=== PATIENT | male | born 1960 | race Caucasian/White ===

== ENCOUNTER 2020-01-03 07:51 | Outpatient (REF) | payer OTHER, SELFPAY ==
[2020-01-03 08:51] LABS: MANUAL DIFF FLAG NO
[2020-01-03 09:07] LABS: Basophils Absolute Auto 0.1 X10*3/uL (0.0-0.2); Basophils Percent Auto 0.9 % (0-2); Eosinophils Absolute Auto 0.3 X10*3/uL (0.0-0.4); Eosinophils Percent Auto 5.3 % (0-4); Hematocrit 41.7 % (42-52); Hemoglobin 13.8 g/dl (14.0-18.0); Imm Gran Abs Auto 0.01 X10*3/uL (0.00-0.03); Imm Gran Pct Auto 0.2 % (0.0-0.4); Lymphocytes Absolute Auto 2.3 X10*3/uL (1.2-4.9); Lymphocytes Percent Auto 42.9 % (20-40); Mean Corpuscular HGB Conc 33.1 g/dl (31.0-36.0); Mean Corpuscular Hemoglobin 30.9 pg (27.0-33.0); Mean Corpuscular Volume 93.5 fL (80-98); Monocytes Absolute Auto 0.4 X10*3/uL (0.1-1.2); Monocytes Percent Auto 7.7 % (2-11); Neutrophils Absolute Auto 2.3 X10*3/uL (2.0-8.3); Platelet Count 304 X10*3/uL (160-400); Red Blood Count 4.46 X10*6/uL (4.60-5.80); Red Cell Distribution Width 13.2 % (11.0-16.0); White Blood Count 5.3 X10*3/uL (4.8-10.8)
[2020-01-03 09:42] LABS: Alanine Aminotransferase 15 U/L (0-40); Albumin Level 4.5 g/dL (3.5-5.0); Alkaline Phosphatase 60 U/L (39-117); Anion Gap 10 (12-20); Aspartate Amino Transferase 34 U/L (5-37); Bilirubin Total 0.6 mg/dL (0.0-1.0); Blood Urea Nitrogen 19 mg/dL (9-16); Calcium 9.3 mg/dL (8.4-10.2); Carbon Dioxide 28 mmol/L (22-29); Chloride 105 mmol/L (96-108); Cholesterol 157 mg/dL; Estimated Glomerular Filt Rate > 60; Glucose Fasting 91 mg/dL (60-99); HDL Cholesterol 54 mg/dL; LDL Cholesterol Calculated 91 mg/dl; Potassium 4.3 mmol/l (3.3-5.1); Sodium 139 mmol/L (135-145); Total Protein 6.7 g/dL (6.5-8.0); Triglycerides 61 mg/dL
[2020-01-03 09:58] LABS: Prostate Specific Antigen 0.75 ng/mL (<0.05-4.0)
== END 2020-01-03 07:52 | disposition home or self-care (01) ==
LOC: HO.LAB 07:51
PROVIDERS: PCP Internal Medicine; Visit Provider Internal Medicine
DX: Z00.00 Encounter for general adult medical examination without abnormal findings (principal); Z12.5 Encounter for screening for malignant neoplasm of prostate
CPT/HCPCS: 36415; 80053; 80061; 84153; 85025

== ENCOUNTER 2020-10-22 14:02 | Outpatient (REF) | payer OTHER, SELFPAY ==
[2020-10-22 14:47] LABS: Influenza A PCR NEGATIVE (Negative); Influenza B PCR NEGATIVE (Negative); Resp Syncy Virus RNA Qual PCR NEGATIVE (Negative); SARS COV2 PCR INHOUSE NEGATIVE (Negative)
== END 2020-10-22 14:03 | disposition home or self-care (01) ==
LOC: HO.LNP 14:02
PROVIDERS: Visit Provider Internal Medicine
DX: Z02.2 Encounter for examination for admission to residential institution (principal); Z20.822 Contact with and (suspected) exposure to COVID-19
CPT/HCPCS: 0241U

== ENCOUNTER 2021-02-25 07:34 | Outpatient (REF) | payer OTHER, SELFPAY ==
[2021-02-25 07:59] LABS: MANUAL DIFF FLAG NO
[2021-02-25 08:43] LABS: Basophils Absolute Auto 0.1 X10*3/uL (0.0-0.2); Basophils Percent Auto 0.9 % (0-2); Eosinophils Absolute Auto 0.2 X10*3/uL (0.0-0.4); Eosinophils Percent Auto 3.6 % (0-4); Hematocrit 42.2 % (42.0-52.0); Hemoglobin 14.1 g/dl (14.0-18.0); Imm Gran Abs Auto 0.02 X10*3/uL (0.00-0.03); Imm Gran Pct Auto 0.3 % (0.0-0.4); Lymphocytes Absolute Auto 2.2 X10*3/uL (1.2-4.9); Lymphocytes Percent Auto 38.2 % (20-40); Mean Corpuscular HGB Conc 33.4 g/dl (31.0-36.0); Mean Corpuscular Hemoglobin 30.9 pg (27.0-33.0); Mean Corpuscular Volume 92.3 fL (80.0-98.0); Mean Platelet Volume 9.5 fL (9.4-12.4); Monocytes Absolute Auto 0.4 X10*3/uL (0.1-1.2); Monocytes Percent Auto 7.3 % (2-11); Neutrophils Absolute Auto 2.9 x10*3/uL (2.0-8.3); Neutrophils Percent Auto 49.7 % (45-73); Platelet Count 275 X10*3/uL (160-400); Red Blood Count 4.57 X10*6/uL (4.60-5.80); Red Cell Distribution Width 12.7 % (11.0-16.0); White Blood Count 5.8 X10*3/uL (4.8-10.8)
[2021-02-25 09:08] LABS: Alanine Aminotransferase 24 U/L (0-40); Albumin Level 4.6 g/dL (3.5-5.0); Alkaline Phosphatase 66 U/L (39-117); Anion Gap 11 (12-20); Aspartate Amino Transferase 40 U/L (5-37); Bilirubin Total 0.7 mg/dL (0.0-1.0); Blood Urea Nitrogen 23 mg/dL (9-16); Calcium 9.7 mg/dL (8.4-10.2); Carbon Dioxide 27 mmol/L (22-29); Chloride 105 mmol/L (96-108); Cholesterol 195 mg/dL; Estimated Glomerular Filt Rate > 60; Glucose Fasting 97 mg/dL (60-99); HDL Cholesterol 64 mg/dL; LDL Cholesterol Calculated 123 mg/dl; Potassium 5.1 mmol/L (3.3-5.1); Sodium 138 mmol/L (135-145); Total Protein 7.1 g/dL (6.5-8.0); Triglycerides 43 mg/dL
[2021-02-25 09:33] LABS: Prostate Specific Antigen 0.86 ng/mL (<0.05-4.0)
== END 2021-02-25 07:35 | disposition home or self-care (01) ==
LOC: HO.LAB 07:34
PROVIDERS: PCP Internal Medicine; Visit Provider Internal Medicine
DX: Z00.00 Encounter for general adult medical examination without abnormal findings (principal); Z13.220 Encounter for screening for lipoid disorders; Z12.5 Encounter for screening for malignant neoplasm of prostate
CPT/HCPCS: 36415; 80053; 80061; 84153; 85025

== ENCOUNTER 2022-02-14 14:17 | Outpatient (REF) | payer OTHER, SELFPAY ==
[2022-02-14 15:03] LABS: Influenza A PCR NEGATIVE (Negative); Influenza B PCR NEGATIVE (Negative); Resp Syncy Virus RNA Qual PCR NEGATIVE (Negative); SARS COV2 PCR INHOUSE NEGATIVE (Negative)
== END 2022-02-14 14:18 | disposition home or self-care (01) ==
LOC: HO.LNP 14:17
PROVIDERS: Visit Provider Internal Medicine
DX: Z20.822 Contact with and (suspected) exposure to COVID-19 (principal); R51.9 Headache, unspecified; R50.9 Fever, unspecified
CPT/HCPCS: 0241U

== ENCOUNTER 2022-11-29 12:34 | Outpatient (REF) | payer OTHER, SELFPAY ==
--- NOTE | ~2022-11-29 | XR_ITS ---
EXAMINATION: XR KNEE, RIGHT CLINICAL INFORMATION: Right knee pain. Osteoarthritis. COMPARISON: None available. TECHNIQUE: AP, tunnel, and lateral views of the right knee. FINDINGS: No significant joint space narrowing or marginal osteophytes. No fracture or dislocation. No lytic or blastic osseous lesion. No significant joint effusion. No abnormal soft tissue calcification. XR/XR knee RT 3V IMPRESSION: Unremarkable examination.
== END 2022-11-29 12:35 | disposition home or self-care (01) ==
LOC: HO.XRAY 12:34
PROVIDERS: PCP Internal Medicine; Visit Provider Internal Medicine
DX: M25.561 Pain in right knee (principal)
CPT/HCPCS: 73562

== ENCOUNTER 2022-12-13 07:03 | Outpatient (REF) | payer OTHER, SELFPAY ==
[2022-12-13 07:16] LABS: MANUAL DIFF FLAG NO
[2022-12-13 07:38] LABS: Basophils Absolute Auto 0.1 X10*3/uL (0.0-0.2); Basophils Percent Auto 0.8 % (0-2); Eosinophils Absolute Auto 0.3 X10*3/uL (0.0-0.4); Eosinophils Percent Auto 4.5 % (0-4); Hemoglobin 14.7 g/dl (14.0-18.0); Imm Gran Abs Auto 0.01 X10*3/uL (0.00-0.03); Imm Gran Pct Auto 0.2 % (0.0-0.4); Lymphocytes Absolute Auto 2.9 X10*3/uL (1.2-4.9); Lymphocytes Percent Auto 44.7 % (20-40); Mean Corpuscular HGB Conc 33.4 g/dl (31.0-36.0); Mean Corpuscular Hemoglobin 30.6 pg (27.0-33.0); Mean Corpuscular Volume 91.7 fL (80.0-98.0); Mean Platelet Volume 9.4 fL (9.4-12.4); Monocytes Absolute Auto 0.5 X10*3/uL (0.1-1.2); Monocytes Percent Auto 8.2 % (2-11); Neutrophils Absolute Auto 2.7 x10*3/uL (2.0-8.3); Neutrophils Percent Auto 41.6 % (45-73); Platelet Count 289 X10*3/uL (160-400); Red Cell Distribution Width 12.9 % (11.0-16.0); White Blood Count 6.5 X10*3/uL (4.8-10.8)
[2022-12-13 08:06] LABS: Alanine Aminotransferase 19 U/L (0-40); Albumin Level 4.4 g/dL (3.5-5.0); Alkaline Phosphatase 64 U/L (39-117); Anion Gap 11 (12-20); Aspartate Amino Transferase 38 U/L (5-37); Bilirubin Total 0.5 mg/dL (0.0-1.0); Blood Urea Nitrogen 18 mg/dL (9-16); Calcium 9.4 mg/dL (8.4-10.2); Carbon Dioxide 23 mmol/L (22-29); Chloride 110 mmol/L (96-108); Cholesterol 206 mg/dL (<200); Estimated Glomerular Filt Rate > 60; Glucose Fasting 99 mg/dL (60-99); HDL Cholesterol 53 mg/dL (>40); LDL Cholesterol Calculated 138 mg/dL (<100); Potassium 4.4 mmol/L (3.3-5.1); Sodium 140 mmol/L (135-145); Triglycerides 77 mg/dL (<150)
[2022-12-13 08:20] LABS: Prostate Specific Antigen 0.85 ng/mL (<0.05-4.0)
== END 2022-12-13 07:04 | disposition home or self-care (01) ==
LOC: HO.LAB 07:03
PROVIDERS: PCP Internal Medicine; Visit Provider Internal Medicine
DX: Z00.00 Encounter for general adult medical examination without abnormal findings (principal); Z12.5 Encounter for screening for malignant neoplasm of prostate; Z82.49 Family history of ischemic heart disease and other diseases of the circulatory system
CPT/HCPCS: 36415; 80053; 80061; 84153; 85025

== ENCOUNTER 2023-02-03 11:19 | Outpatient (REF) | payer OTHER, SELFPAY ==
[2023-02-03 11:54] LABS: Appearance Urine Clear; Color Urine Yellow; Glucose Urine UA Negative (Negative); Leukocyte Esterase Urine Negative (Negative); Nitrite Urine Negative (Negative); PH 5.5 (5.0-9.0); Urine Blood Negative (Negative); Urine Ketones Negative (Negative); Urine Protein Negative (Neg-Trace)
== END 2023-02-03 11:20 | disposition home or self-care (01) ==
LOC: HO.LAB 11:19
PROVIDERS: PCP Internal Medicine; Visit Provider Internal Medicine
DX: R30.0 Dysuria (principal)
CPT/HCPCS: 81003; 87086

== ENCOUNTER 2023-05-15 14:50 | Outpatient (REF) | payer OTHER, SELFPAY ==
[2023-05-15 15:59] LABS: Influenza A PCR NEGATIVE (Negative); Influenza B PCR NEGATIVE (Negative); Resp Syncy Virus RNA Qual PCR NEGATIVE (Negative); SARS COV2 PCR INHOUSE NEGATIVE (Negative)
== END 2023-05-15 14:51 | disposition home or self-care (01) ==
LOC: HO.LNP 14:50
PROVIDERS: Visit Provider Internal Medicine
DX: Z11.52 Encounter for screening for COVID-19 (principal); Z20.822 Contact with and (suspected) exposure to COVID-19; R05.9 Cough, unspecified
CPT/HCPCS: 0241U

== ENCOUNTER 2023-06-14 08:05 | Outpatient (REF) | payer OTHER, SELFPAY ==
[2023-06-14 08:57] LABS: Alanine Aminotransferase 32 U/L (0-40); Aspartate Amino Transferase 142 U/L (5-37); Cholesterol 198 mg/dL (<200); HDL Cholesterol 61 mg/dL (>40); LDL Cholesterol Calculated 129 mg/dL (<100); Triglycerides 44 mg/dL (<150)
== END 2023-06-14 08:06 | disposition home or self-care (01) ==
LOC: HO.LAB 08:05
PROVIDERS: PCP Internal Medicine; Visit Provider Internal Medicine
DX: E78.00 Pure hypercholesterolemia, unspecified (principal)
CPT/HCPCS: 36415; 80061; 82550; 84450; 84460

== ENCOUNTER 2023-07-05 09:46 | Outpatient (REF) | payer OTHER, SELFPAY ==
--- NOTE | ~2023-07-05 | XR_ITS ---
EXAMINATION: XR LUMBOSACRAL SPINE CLINICAL INFORMATION: Back pain with sciatica COMPARISON: 11/14/2014 TECHNIQUE: Three views of the lumbosacral spine. FINDINGS: The vertebral bodies and posterior elements are normal. The disc spaces are preserved and the vertebral alignment is normal. The paraspinal soft tissues are normal. XR/XR lumbar spine 2-3V IMPRESSION: Unremarkable examination.
== END 2023-07-05 09:47 | disposition home or self-care (01) ==
LOC: HO.XRAY 09:46
PROVIDERS: PCP Internal Medicine; Visit Provider Internal Medicine
DX: M54.9 Dorsalgia, unspecified (principal)
CPT/HCPCS: 72100

== ENCOUNTER 2023-08-30 09:35 | Outpatient (REF) | payer OTHER, SELFPAY ==
[2023-08-30 10:11] LABS: Appearance Urine Clear; Color Urine Yellow; Glucose Urine UA Negative (Negative); Leukocyte Esterase Urine Negative (Negative); Nitrite Urine Negative (Negative); Specific Gravity - Urine 1.015 (1.005-1.025); Urine Blood Negative (Negative); Urine Ketones Negative (Negative); Urine Protein Negative (Neg-Trace)
[2023-08-30 11:15] LABS: Prostate Specific Antigen 1.08 ng/mL (<0.05-4.0)
== END 2023-08-30 09:36 | disposition home or self-care (01) ==
LOC: HO.LAB 09:35
PROVIDERS: PCP Internal Medicine; Visit Provider Internal Medicine
DX: Z12.5 Encounter for screening for malignant neoplasm of prostate (principal); R30.0 Dysuria
CPT/HCPCS: 36415; 81003; 84153; 87086

== ENCOUNTER 2024-07-12 06:52 | Day surgery (SDC) | payer BC, SELFPAY ==
--- OUTSIDE RECORDS SUMMARY | 2024-06-18 17:09 | XMS_ITS ---
Author Organization [facility] Address [address] [place] [address] Care Team Providers Care Accounts Receivable Collector Name Role Phone Can Camp MD Primary Care Provider Unavaila Marcell Cage [phone] REASON FOR VISIT BUY Encounters Encounter Location Date Provider Diagnosis [facility] [address] [place] [address] 06/29/2023 Marcell Wood Plan Of Treatment No Information Progress Notes * Harper OCHOAOB:[birth year] (63 yo M)Acc No.[id number]:06/29/2023 Patient:?Roland Ochoa :1960???Age:63 Y???Sex:Male [address] [facility] [place], [address] * true * Date:? Generated for Adriani anna/Michael/eTransmitting on:?06/18/2024 05:08 PM EDT
--- OUTSIDE RECORDS SUMMARY | 2024-06-18 17:09 | XMS_ITS | Patient Health Record ---
Author Organization [facility] Address [address] [place] [address] Care Team Providers Care Geotechnical Engineering Technician Name Role Phone Can Camp MD Primary Care Provider Marcell Weston Unavailable [phone] Allergies No Known Allergies Reason For Referral No Information Medications Medication SIG (Take, Route, Frequency, Duration) Notes Start Date End Date Status Vitamin D Active Simvastatin 20 MG 1 tablet in the even ing Orally Not-Taking Vitamin E Not-Taking Ezetimibe 10 MG 1 tablet Orally Once a day Active Lisinopril Active Fish Oil Active Multivitamin One a day Active Social History Tobacco Use: Social History Observation Description Date Details (start date - stop date) Never Smoker NA - NA Tobacco Use/Smoking Question Answer Notes Are you a: nonsmoker Additional Findings: Tobacco Non-User Current no n-smoker Alcohol Screen Question Answer Notes Did you have a drink contain ing alcohol in the past year? Yes How often did you have a dri nk containing alcohol in the past year? Monthly or less (1 point) How often did you have 6 or more drinks on one occasion in the past year? Less than monthly (1 point) Points 2 Interpretation Negative Tobacco use other than smoking: Question Answer Notes Are you an other tobacco user? 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 Vital Signs Height 5 ft 6 in in 06/29/2023 Weight 160 lbs 06/29/2023 BMI 25.82 kg/m2 06/29/2023 Encounters Encounter Location Date Provider Diagnosis [facility] [address] [place] [address] 06/29/2023 Marcell Wood Pain in right foot M79.671 ; Metatarsalgia, right foot M77.41 and Melendrez's neuroma, right G57.61 [facility] [address] [place] [address] 06/29/2023 Marcell Wood Assessments Encounter Date Diagnosis (ICD Code) Assessment Notes Treatment Notes Treatment Clinical Notes Section Notes 06/29/2023 Pain in right foot (ICD-10 - M79.671) 06/29/2023 Metatarsalgia, right foot (ICD-10 - M77.41) 06/29/2023 Melendrez's neuroma, right (ICD-10 - G57.61) Plan Of Treatment Pending Test Test Name Order Date X ray : Foot, left 2V 06/27/2016 X ray : Foot, right 2V 06/27/2016 X ray : Foot, right 3V 09/07/2017 X ray : Foot, right 3V 05/29/2023 Insurance Providers Payer Name Payer Address Payer Phone Subscriber Number Group Number Insured Name Patient Relationship to Insured Coverage Start Date Coverage End Date [facility] [address] [place] [address] [phone] [id number] Roland Tabares Self - patient is the insured Medical (General) History Medical History History ICD Code Back,Hip,and Knee pain Broken bones CAD (Cholesterol) Chicken pox High blood pressure Cataracts covid-19 Surgical History Surgery Date(Month/Year) tortion wisdom teeth extraction colonoscopy
--- OUTSIDE RECORDS SUMMARY | 2024-06-18 17:09 | XMS_ITS | Patient Health Record ---
Author Organization [facility] Address [address] [place] [address] Care Team Providers Care Interlocking Pavement Installer Name Role Phone Can Juarez MD Primary Care Provider Unavaila ble Wyatt Infante Jr Unavailable [phone] Allergies No Known Allergies Reason For Referral Referring Provider First Name Can Referring Provider Last Name Conrado Referring Provider Speciality Internal M edicine Referred Organization [facility] Referred Provider Wyatt Infante Jr Referred Address [address] [facility],[place], [place],[address],[place] Referred Provider Specialty Gastroentero logy General Notes Sophia Mccarthy 024 01:18:30 PM EST > requested an o blue referral from dr juarez's office for visit with Dr. Infante on 04-22-2024 ( said 03-27-24) [phone], Sophia Mccarthy 04/10/2024 03:55:01 PM EST > requested again Referral Priority Routine Medications Medication SIG (Take, Route, Fr equency, Duration) Notes Start Date End Date Status Ezetimibe 10 MG TAKE ONE TABLET BY M OUTH EVERY DAY Oral for 30 Active Ibuprofen 200 MG 1 tablet with food o r milk as needed Orally Three times a day Active Lisinopril 10 MG TAKE ONE TABLET BY M OUTH EVERY DAY Oral for 60 Active Immunizations Vaccine Route Administration Date Status Comme nts Influenza Unknown 12/12/2023 Administered Problems Problem Type SNOMED Code ICD Code Onset Dates Problem Status W/U Status Risk Notes Problem External hemorrhoids without complication (72161046) External hemorrhoids without mention of complication (455.3) Active confirmed Problem Screening for malignant neoplasm of colon (272310414) Special screening for malignant neoplasms, colon (V76.51) Active confirmed Problem 611093254 Special screening for malignant neoplasms, colon (Z12.11) Active confirmed Problem 494620897 Encounter for other preprocedural examination (Z01.818) Active confirmed Problem 192245719424812 Encounter for long-term (current) use of NSAIDs (Z79.1) Active confirmed Vital Signs Temperature 96.9 degrees Fahrenheit 04/22/2024 Blood pressure diastolic 00 mm Hg 04/22/2024 Height 67 in 04/22/2024 Blood pressure systolic 000 mm Hg 04/22/2024 Weight 172 lb 4 oz lbs 04/22/2024 BMI 26.98 kg/m2 04/22/2024 Encounters Encounter Location Date Provider Diagnosis [facility] [address] [place] [address] 04/22/2024 Wyatt Infante Jr Special screening for malignant neoplasms, colon Z12.11 ; Encounter for other preprocedural examination Z01.818 and Encounter for long-term (current) use of NSAIDs Z79.1 Assessments Encounter Date Diagnosis (ICD Code) Assessment Notes Treatment Notes Treatment Clinical Notes Section Notes 04/22/2024 Special screening for malignant neoplasms, colon (ICD-10 - Z12.11) Colonoscopy material was printed We discussed colonoscopy today. We discussed risks and benefits of the procedure today. He understands these and agrees to proceed. This will be scheduled at his convenience. He is advised stop ibuprofen one week before the procedure. 04/22/2024 Encounter for other preprocedural examination (ICD-10 - Z01.818) We discussed colonoscopy today. We discussed risks and benefits of the procedure today. He understands these and agrees to proceed. This will be scheduled at his convenience. He is advised stop ibuprofen one week before the procedure. 04/22/2024 Encounter for long-term (current) use of NSAIDs (ICD-10 - Z79.1) We discussed colonoscopy today. We discussed risks and benefits of the procedure today. He understands these and agrees to proceed. This will be scheduled at his convenience. He is advised stop ibuprofen one week before the procedure. Plan Of Treatment Future Test Test Name Order Date COLONOSCOPY 07/13/2011 COLONOSCOPY 04/22/2024 Next Appt Details Provider Name:Wyatt Lili Andino harden Jr, 07/12/2024 08:10:00 AM, [address] [facility] , [place], [place], [id number], Insurance Providers Payer Name Payer Address Payer Phone Subscriber Number Group Number Insured Name Patient Relationship to Insured Coverage Start Date Coverage End Date [facility] [employer] [address] [place] [address] [id number] HARRY OCHOA Self - patient is the insured Medical (General) History Medical History History ICD Code Hyperlipidemia enlarged prostate Hypertension Colonoscopy 08/29, hyperplastic polyp, fi ve-year followup Surgical History Surgery Date(Month/Year) cystoscopy and prostate surgery
--- OUTSIDE RECORDS SUMMARY | 2024-06-18 17:09 | XMS_ITS ---
Author Organization [facility] Address [address] [place] [address] Care Team Providers Care Director Of Agriculture Name Role Phone Can Camp MD Primary Care Provider Danyellea Marcell Cage [phone] Allergies No Known Allergies REASON FOR VISIT Pcp-06/10 Medications Medication SIG (Take, Route, Frequency, Duration) Notes Start Date End Date Status Vitamin D Active Vitamin E Not-Taking Ezetimibe 10 MG 1 tablet Orally Once a day Active Fish Oil Active Multivitamin One a day Active Simvastatin 20 MG 1 tablet in the even ing Orally Not-Taking Lisinopril Active Social History Tobacco Use: Social History [...] Are you an other tobacco user? No Vital Signs Height 5 ft 6 in in 06/29/2023 Weight 160 lbs 06/29/2023 BMI 25.82 kg/m2 06/29/2023 Encounters Encounter Location Date Provider Diagnosis [facility] [address] [place] [address] 06/29/2023 Marcell Wood Pain in right foot M79.671 ; Metatarsalgia, right foot M77.41 and Melendrez's neuroma, right G57.61 Assessments Encounter Date Diagnosis (ICD Code) Assessment Notes Treatment Notes Treatment Clinical Notes Section Notes 06/29/2023 Pain in right foot (ICD-10 - M79.671) 06/29/2023 Metatarsalgia, right foot (ICD-10 - M77.41) 06/29/2023 Melendrez's neuroma, right (ICD-10 - G57.61) Plan Of Treatment Next Appt Details Follow Up: prn, Reason: Progress Notes * Harper OCHOAOB:[birth year] (63 yo M)Acc No.[id number]:06/29/2023 Progress Notes Patient:?Roland Ochoa Provider:?Marcell Wood DPM :1960???Age:63 Y???Sex:Male Esteban e:06/29/2023 Address:[address] [place], [place] [id number] Pcp:Can Camp MD Subjective: * Chief Complaints: * ???Pcp-06/10 * HPI: ???Foot Pain:?Nature:?aching.?Location?Right , Forefoot--4th toe.?Duration:?several months.?Onset/Cause:?running 6mi/day 3d/wk.?Course:?improved.?Treatments:?viva sport orthotic.?Toe pain:?Nature:?aching.?Location:?Bottom, Great toe, Left foot.?Duration:?several weeks.?Severity/Quality:?mild.? * ROS:?General/Constitutional:?Nausea?denies.?Vomiting?denies.?Hunger Thirst?denies.?Loss appetite?denies.?Chills?denies.?Fatigue?denies.?Fever?denies.?Night Sweats?denies.?Unexplained weight loss?denies.?Unexplained weight gain?denies.?HEENTM:?Dentures?denies.?Dizziness?denies.?Glasses/contacts?admits.?Retinopathy?de nies.?Blurred/double vision?denies.?TMJ?denies.?Discharge/drainage?denies.?Implants?denies.?Sore throat?denies.?Dental implants?denies.?Hard of hearing ?denies.?Difficulty chewing/swallowing/speaking?denies.?Nose bleeds?denies.?Sore mouth?denies.?Respiratory:?On Oxygen?denies.?Pneumonia/pleurisy?denies.?Bronchitis?denies.?Emphysema?denies.?C oughing?denies.?Cough blood?denies.?Shortness of breath?denies.?Wheezing?denies.?Cardiovascular:?Pacemaker?denies.?MVP?denies.?WPW?denies.?CHF?denies.?Heart attack?denies.?Septal defect?denies.?Rapid beat?denies.?Chest pain ?denies.?Atrial Fib.?denies.?Murmur/Palpitations?denies.?Gastrointestinal:?Hemorrhoids?denies.?Stomach/Abdominal pain?denies.?Dark blood stool?denies.?Irritable bowel ?denies.?Constipation?denies.?Diarrhea?denies.?Hematology:?Swelling?denies.?Clots?denies.?Varicose Veins?denies.?Bruising?denies.?Bleeding problem?denies.?Genitourinary:?Blood urine?denies.?Frequent/Painfu/urination/bladder control?denies.?Kidney stones?denies.?Infection (UTI)?denies.?Nephropathy?denies.?sex trans dis (STD)?denies.?Prostate?denies.?Musculoskeletal:?Hammertoes?denies.?Bunions?denies.?Back Pain?denies.?Muscle Cramps/ Resting?denies.?Muscle cramps / walking?denies.?Generalized aches and pains?admits.?Weakness?denies.?Integ.:?Reyes?denies.?Scars?denies.?Corns/calluses?denies.?Ingrown nails?denies.?Painful nails?denies.?Open Sores?denies.?Rashes?denies.?Neurologic:?Difficulty sleeping?admits.?Brain disorder?denies.?Numbness?denies.?Balance trouble?denies.?Confusion?denies.?Fainting/blackouts?denies.?Tingling?denies.?Tr emors?denies.? * Medical History:? * Surgical History:?tortion wi sdom teeth extraction colonoscopy * Hospitalization/Major Diagno stic Procedure:?Denies Past Hospitalization * Family History:?Mother: dece ased, poor circulation, diagnosed with Unspecified essential hypertension, Other malignant neoplasm of unspecified site.?Father: , heart attack, kidney/liver disease, diagnosed with Unspecified essential hypertension.? * Social History:?Tobacco Use:?Tobacco Use/Smoking?Are you a:?nonsmoker ?Additional Findings: Tobacco Non-User?Current non-smoker ?Tobacco use other than smoking?Are you an other tobacco user??No ???Drugs/Alcohol:?Drugs?Have you used drugs other than those for medical reasons in the past 12 months??No ?Alcohol Screen?Did you have a drink containing alcohol in the past year??Yes ?How often did you have a drink containing alcohol in the past year??Monthly or less (1 point) ?How often did you have 6 or more drinks on one occasion in the past year??Less than monthly (1 point) ?Points?2 ?Interpretation?Negative ???Miscellaneous:?Caffeine: yes, frequency:, 2-3 cups per day 2 caffine in am and 1 decaff in pm. ?no Children. ?Exercise: yes, running, gym. ?Marital status: single. ?Occupation: [employer]. * Medications:?TakingFish Oil Multivitamin , Notes: One a dayEzetimibe 10 MG Tablet 1 tablet Orally Once a dayLisinopril Vitamin D Taking Fish Oil Taking Multivitamin , Notes: One a dayTaking Ezetimibe 10 MG Tablet 1 tablet Orally Once a dayTaking Lisinopril Taking Vitamin D Not-Taking/PRNSimvastatin 20 MG Tablet 1 tablet in the evening Orally Vitamin E Medication List reviewed and reconciled with the patientNot-Taking/PRN Simvastatin 20 MG Tablet 1 tablet in the evening Orally Not-Taking/PRN Vitamin E Medication List reviewed and reconciled with the patient * Allergies:?N.K.D.A.yes[Aller gies Verified] Objective: * Vitals:?Ht: 5 ft 6 in, Wt:16 0, BMI:25.82, Shoe size:10. * Examination: ???General Examination: ?GENERAL APPEARANCE:?pleasant, alert, well nourished, well developed, well hydrated, with good attention to hygene/body habitus, and in no acute distress.?ORIENTED:?person,place, and time.?Neurological: ?SENSORY:?Neurological exam is normal, pain sensation normal, vibration sensation intact, pinprick sensation is normal in the lower extremities, denies, tingling, burning, anesthesia, paresthesia, hyperesthesia, B/L, Neurological exam demonstrates mild pop plantar ta ipj.?TINEL'S COMPRESSION:?Negative tarsal tunnel, teddy pedis, and medial calcaneal nerves B/L.?BABINSKI REFLEX:?absent.?Neuroma Pain: ?PALPATION:?No interspace pain noted on palpation.?Vascular: ?DP PULSES:?2/4, B/L.?PT PULSES:?2/4, B/L.?CAPILLARY FILL TIME:?3 secs. per digit, B/L.?SKIN TEMPERTURE GRADIENT OF THE LOWER EXTERMITIES:?warm to cool, proximal to distal, B/L.?HAIR GROWTH/TEXTURE/ELASTICITY/TURGOR:?normal, B/L.?PIGMENTATION:?normal, B/L.?EDEMA:?no edema.?TELANGECTASIA:?absent.?VARICOSITIES:?absent.?Dermatologic: ?SKIN FINDINGS:?Skin exam reveals normal texture, elasticity, and tugor. There are no masses. The interspaces are clear, B/L .?Orthopedic: ?MUSCLE STRENGTH:?5/5 all groups in a symmetrical fashion , B/L.?GAIT ABNORMALITY:?pronated, abducted, B/L.? Assessment: * Assessment: 1.?Pain in right foot - M79. 671 (Primary)?2.?Metatarsalgia, right foot - M77.41?3.?Melendrez's neuroma, right - G57.61? Plan: * Treatment: * Procedure Codes:? * Preventive Medicine:? ??Counseling:?Discussion:?-14: Office or other outpatient visit for the evaluation and management of an established patient, which required a medically appropriate history and/or examination and MODERATE level of DECISION MAKING for: 1 OR MORE CHRONIC PROBLEM(S) THATS WORSENING, 2 STABLE CHRONIC PROBLEMS, A NEWLY DIAGNOSED PROBLEM WITH UNCERTAIN PROGNOSIS, AN ACUTE COMPLICATED INJURY WITH MULTIPLE TREATMENT OPTIONS, OR AN ACUTE PROBLEM WITH ACCOMPANYING SYSTEMIC SYMPTOMS, THAT POSE(S) A MODERATE RISK OF MORBIDITY. THIS CONDITION MAY ALSO INCLUDE RX DRUG MANAGEMENT, OR A DECISON FOR MINOR SURGERY. The visit on the day of the encounter encompassed interpreting the data and educating the patient as to the nature of their condition, treatment options available according to their individual PMH, meds, allergies, and overall health/living conditions, as well as any potential risks or complications that may occur from a failure to adhere to, and participate in, the recommended course of therapy. The discussion included a complete verbal, and/or written explanation of the examination results, any x-rays taken, the proposed diagnosis, and outline of the treatment plan. A schedule for future care needs was also explained. The patient verbalized an understanding of the instructions at this time and agreed to be an active participant in their treatment. If the patient should think of any questions or concerns after the visit, I have encouraged the patient to call the office--pt to continue with orthoses and also to try the digital tubefoam padding for ta pain.? * Follow Up:?prn * Images: * Sign off status: Completed true * Provider:?Marcell Wood DPM Date:? 024 Generated for Rodney castillo/Michael/eTransmitting on:?06/18/2024 05:08 PM EDT History and Physical Notes * HPI (History of Present Illness) Category Sub-Category Detail Notes Category Not es Toe pain Nature: aching Location: Bottom, Great toe, L eft foot Duration: several weeks Severity/Quality: mild Foot Pain Onset/Cause: running 6mi/day 3d/wk Course: improved Duration: several months Nature: aching Treatments: viva sport orthotic Location Right , Forefoot--4t h toe Examination Category Sub-Category Detail Notes Category Not es Neuroma Pain PALPATION: No interspace pain noted on palpation Neurological SENSORY: Neurological exa m is normal, pain sensation normal, vibration sensation intact, pinprick sensation is normal in the lower extremities, denies, tingling, burning, anesthesia, paresthesia, hyperesthesia, B/L, Neurological exam demonstrates mild pop plantar ta ipj BABINSKI REFLEX: absent TINEL'S COMPRESSION: Negative tarsal kj sheila, teddy pedis, and medial calcaneal nerves B/L Dermatologic SKIN FINDINGS: Skin exam reveal s normal texture, elasticity, and tugor. There are no masses. The interspaces are clear, B/L Orthopedic GAIT ABNORMALITY: pronated, abducted, B/L MUSCLE STRENGTH: 5/5 all groups in a symmetrical fashion , B/L General Examination GENERAL APPEARANCE: pleasant , alert, well nourished, well developed, well hydrated, with good attention to hygene/body habitus, and in no acute distress ORIENTED: person,place, and ti me Vascular DP PULSES (B): 2/4, B/L PT PULSES (B): 2/4, B/L CAPILLARY FILL TIME: 3 secs. per digit, B/L TEMPERTURE GRADIENT (C): warm to cool, p roximal to distal, B/L TROPHIC CONDITION-TEXTURE/ELASTICITY/TURGOR/HAIR GROWTH (B): normal, B/L EDEMA (C): no edema TELANGECTASIA: absent VARICOSITIES: absent PIGMENTATION: normal, B/L
--- OUTSIDE RECORDS SUMMARY | 2024-06-18 17:09 | XMS_ITS ---
Author Organization [facility] Address [address] [place] [address] Care Team Providers Care Color Television Console Monitor Name Role Phone Can Camp MD Primary Care Provider Wyatt Paez Jr Unavailable [phone] Allergies No Known Allergies REASON FOR VISIT Patient presents today for a COLON RECALL Medications Medication SIG (Take, Route, Fr equency, Duration) Notes Start Date End Date Status Ezetimibe 10 MG TAKE ONE TABLET BY M OUTH EVERY DAY Oral for 30 Active Ibuprofen 200 MG 1 tablet with food o r milk as needed Orally Three times a day Active Lisinopril 10 MG TAKE ONE TABLET BY M OUTH EVERY DAY Oral for 60 Active Social History Tobacco Use: Social History Observation Description Date Details (start date - stop date) Never Smoker NA - NA Tobacco Use/Smoking Question Answer Notes Patient is a nonsmoker Alcohol Screen Question Answer Notes Did you have a drink contain ing alcohol in the past year? Yes Points 2 Interpretation Negative How many drinks did you have on a typical day when you were drinking in the past year? 1 or 2 drinks (0 point) How often did you have a dri nk containing alcohol in the past year? 2 to 4 times a month (2 points) Section Notes: Tobacco use negative, alcoho l use is described as social. Problems Problem Type SNOMED Code ICD Code Onset Dates Problem Status W/U Status Risk Notes Problem 099876785 Special screenin g for malignant neoplasms, colon (Z12.11) Active confirmed Problem 273109108 Encounter for other preprocedural examination (Z01.818) Active confirmed Problem [id number] Encounter for long-term (current) use of NSAIDs (Z79.1) Active confirmed Vital Signs Temperature 96.9 degrees Fahrenheit 04/22/19 25 Blood pressure systolic 000 mm Hg 04/22/19 25 Blood pressure diastolic 00 mm Hg 025 Height 67 in 04/22/2024 Weight 172 lb 4 oz lbs 04/22/2024 BMI 26.98 kg/m2 04/22/2024 Encounters Encounter Location Date Provider Diagnosis [facility] [address] [place] [address] 04/22/2024 Wyatt Infante Jr Special screening for [...] week before the procedure. Plan Of Treatment Treatment Notes Assessment Notes Special screening for malignant neoplasm s, colon Colonoscopy material was printed Future Test Test Name Order Date COLONOSCOPY 04/22/2024 Next Appt Details Follow Up: 1 Year, Reason: Provider Name:Wyatt harden Jr, 07/12/2024 08:10:00 AM, [address] [facility] , [place], [place], [id number], Progress Notes * ABDULAZIZ OCHOA:[birth year] (63 yo M)Acc No.[id number]:04/22/2024 Progress Notes Patient:?ROLAND OCHOA Provider:?Wyatt Infante MD :1960???Age:63 Y???Sex:Male Esteban e:04/22/2024 Address:[address] [place], [place] [address] Pcp:Can Camp MD Subjective: * Chief Complaints: * ???1. Patient presents today for a COLON RECALL. * HPI: ???New symptom(s):? Roland is a 63-year-old man seen today for his preoperative colonoscopy visit. He has no complaints of rectal bleeding or change in his bowel habits. Weight and appetite have been stable. Previous colonoscopy in 2003 showed a hyperplastic polyp and five-year followup was recommended. * ROS:?General/Constitutional:?Change in appetite?denies.?Fatigue?denies.?ENT:?Patient denies?difficulty swallowing.?Respiratory:?Patient denies?shortness of breath.?Cardiovascular:?Patient denies?chest pain.?Gastrointestinal:?Comments?See HPI for details.?Genitourinary:?Difficulty urinating?denies.?Incontinence?denies.?Musculoskeletal:?Patient denies?muscle aches.?Skin:?Patient denies?pruritis.?Neurologic:?Patient denies?low back pain.?Psychiatric:?Patient denies?mental or physical abuse.? * Medical History:?Hyperlipide randi, Enlarged prostate, Hypertension, Colonoscopy 08/29, hyperplastic polyp, five-year followup. * Surgical History:?cystoscopy and prostate surgery . * Family History:?Father: dece ased, diagnosed with Heart disease.?Mother: .? Father with colon polyps. No family history of colon cancer or liver cancer. * Social History:?Tobacco Use:?Tobacco Use/Smoking?Patient is a?nonsmoker.?Drugs/Alcohol:?Alcohol Screen?Did you have a drink containing alcohol in the past year??Yes,?How many drinks did you have on a typical day when you were drinking in the past year??1 or 2 drinks (0 point),?How often did you have a drink containing alcohol in the past year??2 to 4 times a month (2 points),?Points?2,?Interpretation?Negative.?Miscellaneous:?Marital status: single. Occupation: retired. ???Tobacco use negative, alcohol use is described as social. * Medications:?Taking Ibuprofe n 200 MG Tablet 1 tablet with food or milk as needed Orally Three times a day, Taking Ezetimibe 10 MG Tablet TAKE ONE TABLET BY MOUTH EVERY DAY Oral , Taking Lisinopril 10 MG Tablet TAKE ONE TABLET BY MOUTH EVERY DAY Oral , Discontinued Simvastatin , Discontinued MoviPrep 100 GM Solution Reconstituted as directed before colonoscopy Orally , Medication List reviewed and reconciled with the patient * Allergies:?N.K.D.A. Objective: * Vitals:?Wt: 172 lb 4 oz, Ht: 67 in, BMI:26.98 Index, BP: 000/00 mm Hg, Temp: 96.9. * Examination: ???General Examination: ?GENERAL APPEARANCE:?in no acute distress.?HEAD:?normocephalic.?EYES:?sclera non-icteric.?ORAL CAVITY:?mucosa moist.?NECK/THYROID:?no lymphadenopathy.?SKIN:?anicteric.?HEART:?S1, S2 normal, no murmurs.?LUNGS:?clear to auscultation bilaterally.?CHEST:?normal shape and expansion.?ABDOMEN:?soft, nontender, nondistended, bowel sounds present, no organomegaly .?EXTREMITIES:?no clubbing, cyanosis, or edema.?PSYCH:?cognitive function intact.? Assessment: * Assessment: 1.?Encounter for other prepr ocedural examination - Z01.818 (Primary)?2.?Special screening for malignant neoplasms, colon - Z12.11?3.?Encounter for long-term (current) use of NSAIDs - Z79.1? We discussed colonoscopy tod ay. We discussed risks and benefits of the procedure today. He understands these and agrees to proceed. This will be scheduled at his convenience. He is advised stop ibuprofen one week before the procedure. Plan: * Treatment: Notes: Colonoscopy material was printed?? * Procedure Codes:?3017F COLOR ECTAL CA SCREEN DOC REV, G9903 Pt scrn tbco id as non user, G9744 PATIENT NOT ELIG D/T ACTIVE DX HTN * Preventive Medicine:? ??Counseling:?Care goal follow-up plan:?Above Normal BMI Follow-up?Giving encouragement to exercise,?BMI management provided?Yes.? * Follow Up:?1 Year * * Sign off status: Completed true * Provider:?Wyatt Infante MD Date:?0 04/22/2024 Generated for Rodney castillo/Michael/Tuckeritting on:?06/18/2024 05:09 PM EDT History and Physical Notes * HPI (History of Present Illness) Category Sub-Category Detail Notes Category Not es New symptom(s) Roland is a [age]-year-old man seen today for his preoperative colonoscopy visit. He has no complaints of rectal bleeding or change in his bowel habits. Weight and appetite have been stable. Previous colonoscopy in 2003 showed a hyperplastic polyp and five-year followup was recommended. Examination Category Sub-Category Detail Notes Category Not es General Examination GENERAL APPEARANCE: in no acute di stress HEAD: normocephalic EYES: sclera non-icteric NECK/THYROID: no lymphadenopathy HEART: S1, S2 normal, no mu rmurs CHEST: normal shape and exp ansion LUNGS: clear to auscultatio n bilaterally ABDOMEN: soft, nontender, non distended, bowel sounds present, no organomegaly SKIN: anicteric EXTREMITIES: no clubbing, cyanosi s, or edema PSYCH: cognitive function i ntact ORAL CAVITY: mucosa moist
--- OUTSIDE RECORDS SUMMARY | 2024-06-18 17:09 | XMS_ITS ---
Author Organization [facility] Address [address] [place] [address] Care Team Providers Care Critical Power Technician Name Role Phone Can Camp MD Primary Care Provider Unavaila Marcell Cage [phone] REASON FOR VISIT Pedag Viva sport Encounters Encounter Location Date Provider Diagnosis [facility] [address] [place] [address] 05/29/2023 Marcell Wood Plan Of Treatment No Information Progress Notes * Harper OCHOAOB:[birth year] 63 (63 yo M)Acc No.[id number]:05/29/2023 Patient:?Roland Ochoa :1960???Age:63 Y???Sex:Male Address:[address] [place], [address] * true * Date:? Generated for Adriani anna/Michael/eTransmitting on:?06/18/2024 05:08 PM EDT
[2024-07-10 14:12] VITALS: BMI 26.9
--- NOTE | 2024-07-11 08:30 | P.CONAN_ITS ---
Documented by User: Renu Bunch NP 07/11/24 08:31 HPI - Anesthesia Eval Consult details Narrative: 64yo M for Colonoscopy [facility] Past Medical History Medical History BPH (benign prostatic hyperplasia) HTN (hypertension) Elevated cholesterol Surgical History Surgical History History of prostate surgery Hx of cystoscopy H/O colonoscopy Social History Social History Advance Directives: No Advance Directives Information Provided: Yes Meds Allergies Allergy/AdvReac Type Severity Reaction Status Date / Time No Known Allergies Allergy Verified 07/10/24 14:10 Home Medications ?Medication ?Instructions ?Recorded ?Confirmed ?Last Taken ?Type ezetimibe 10 mg tablet 10 mg PO DAILY 07/10/24 07/10/24 Unknown History ibuprofen 200 mg tablet 200 mg PO Q6H PRN Pain 07/10/24 07/10/24 Unknown History lisinopril 10 mg tablet 10 mg PO DAILY 07/10/24 07/10/24 Unknown History Exam Height,Weight and Vital Signs: Height 5 ft 7 in Weight 78.018 kg Assessment and Plan Assessment Anesthesia Assessment: Chart Reviewed Documented by User: Germaine Dunaway MD 07/12/24 08:06 [facility] Past Medical History Medical History BPH (benign prostatic hyperplasia) HTN (hypertension) Elevated cholesterol Family History Family history of problems with anesthesia: No Surgical History Surgical History History of prostate surgery Hx of cystoscopy H/O colonoscopy History of Problems with Anesthesia: No Social History Social History Advance Directives: No Advance Directives Information Provided: Yes Meds Allergies Allergy/AdvReac Type Severity Reaction Status Date / Time No Known Allergies Allergy Verified 07/10/24 14:10 Home Medications ?Medication ?Instructions ?Recorded ?Confirmed ?Last Taken ?Type ezetimibe 10 mg tablet 10 mg PO DAILY 07/10/24 07/10/24 Unknown History ibuprofen 200 mg tablet 200 mg PO Q6H PRN Pain 07/10/24 07/10/24 Unknown History lisinopril 10 mg tablet 10 mg PO DAILY 07/10/24 07/10/24 Unknown History Exam Height,Weight and Vital Signs: Height 5 ft 7 in Weight 78.018 kg Vital Signs Temp Pulse Resp BP Pulse Ox O2 Del Method 07/12/24 07:43 98.1 F 67 18 162/82 H 99 Room Air Airway Mallampati Class: II TM Dist: >3cm Neck ROM: Full Loose/Missing/Broken Teeth: No Heart: RRR Lungs: CTAB Assessment and Plan Assessment Anesthesia Assessment: Anesthesia Plan Discussed and Chart Reviewed Final Anesthetic Review Family History of Problems with Anesthesia: No History of Problems with Anesthesia: No NPO: Yes ASA Class: II Final Preanesthetic Review: No Changes in Pt Med Stat, Meds/Allgs Chart Reviewed, Consent Obtained/Reviewed and Anes Risks/Benef Reviewed Patient Risk: Low Procedure Risk: Low Assessment/Block/Sedation in SS: Assess/Block/Sedation- Anesthetic Plan Anesthetic Plan: TIVA Disposition: Standard PACU
[2024-07-12 07:43] VITALS: BP 162/82; PULSE 67; RESP 18; TEMP 36.7; O2SAT 99; BMI 25.7
[2024-07-12] MEDS: Lactated Ringers 1,000 ML 100 ML IVCONT (08:08)
--- NOTE | 2024-07-12 08:21 | MHC.SHP ---
Pre-Procedural Eval Section A - 24 Hr Update-Section A only Date of Service: 07/12/24 Section B - Complete if H&P > 30 days Chief Complaint: screening Details of Present Illness: see H&P no chages Relevant Family History (Specify if Yes): No Relevant Social History: None Present Medications: see Short Stay Collaborative assessment Medical History: No relevant PMH History of Previous Operations: No relevant previous surgery Allergies: Allergies Allergy/AdvReac Type Severity Reaction Status Date / Time No Known Allergies Allergy Verified 07/10/24 14:10 Review of Systems Sugical H&P ROS: Negative: Constitution, Cardiovascular, Respiratory, Neurological, Psychiatric, Hem-Onc, Allergic/Immunologic, Gastrointestinal, Genitourinary, Musculoskeletal, Integumentary, Endocrine and Eyes/Ears/Nose/Throat Exam Surgical H&P Exam: Normal: HEENT, Normal: Heart, Normal: Lungs, Normal: Extremities, Normal: Abdomen, Normal: Skin and Normal: Neurological Plan Diagnosis/Plan: Unchanged I have reviewed the history and physical and performed a pertinent physical examination on my patient. No changes have occurred unless specified. Time Spent With Patient Time: Total time managing care of this patient today ____ minutes.
[2024-07-12 08:48] VITALS: BP 92/53; PULSE 54; RESP 12; TEMP 36.1; O2SAT 97
[2024-07-12 09:03] VITALS: BP 110/68; PULSE 63; RESP 16; O2SAT 99
--- NOTE | 2024-07-12 09:44 | OP_ITS ---
DATE OF SERVICE: 07/12/2024 SURGEON: Wyatt Infante MD INDICATIONS: Colon cancer screening. PREOPERATIVE DIAGNOSIS: POSTOPERATIVE DIAGNOSIS: PROCEDURE PERFORMED: Colonoscopy to the terminal ileum. ESTIMATED BLOOD LOSS: COMPLICATIONS: ANESTHESIA: Monitored anesthesia care. ASSISTANTS: SPECIMENS: DESCRIPTION OF PROCEDURE: A history and physical were performed. The risks and benefits of the procedure were explained to the patient. Informed consent was obtained. The patient was placed in the left lateral decubitus position. A digital rectal exam was performed and was found to be normal. The Olympus videocolonoscope was introduced into the rectum and advanced to the cecum. The cecum was identified by transillumination, palpation, identification of the ileocecal valve. Examination was performed. The scope was removed. He tolerated the procedure well and was taken to recovery area in stable condition. FINDINGS: The terminal ileum was normal. The visualized colonic mucosa was normal. The quality of the prep was good. No polyps were identified. Retroflexed examination showed small internal hemorrhoids. There was mild sigmoid diverticulosis. IMPRESSION: Normal colonoscopy. RECOMMENDATIONS: 1. Follow up as needed. 2. Repeat colonoscopy is recommended in 10 years for average-risk individuals, 5 years for those who have a family history. MD ENNA Rapp/SCOTTL / [phone]
== END 2024-07-12 09:43 | disposition home or self-care (01) ==
PROVIDERS: PCP Internal Medicine; Visit Provider Internal Medicine Gastroenterology
PROC: 0DJD8ZZ Inspection of Lower Intestinal Tract, Via Natural or Artificial Opening Endoscopic (ICD-10-PCS; CPT 45378; principal; 2024-07-12 08:10)
DX: Z12.11 Encounter for screening for malignant neoplasm of colon (principal); K57.30 Diverticulosis of large intestine without perforation or abscess without bleeding; K64.8 Other hemorrhoids; I10 Essential (primary) hypertension; E78.5 Hyperlipidemia, unspecified; N40.0 Benign prostatic hyperplasia without lower urinary tract symptoms; Z79.1 Long term (current) use of non-steroidal anti-inflammatories (NSAID); Z79.899 Other long term (current) drug therapy; Z98.890 Other specified postprocedural states
CPT/HCPCS: 45378; J2003; J2704

== ENCOUNTER 2024-08-06 10:26 | Outpatient (REF) | payer BC, SELFPAY ==
--- NOTE | ~2024-08-06 | XR_ITS ---
EXAMINATION: XR KNEE, RIGHT CLINICAL INFORMATION: M25.569 - Pain in unspecified knee COMPARISON: None available. TECHNIQUE: Four views of the right knee. FINDINGS: No fracture or joint effusion. Alignment is anatomic. Joint spaces are maintained. No abnormal soft tissue calcification. XR/XR knee RT 4V IMPRESSION: Normal right knee. Electronically signed by: Scott Renner MD 08/06/2024 12:29 PM EDT
== END 2024-08-06 10:27 | disposition home or self-care (01) ==
LOC: HO.HMGCX 10:26
PROVIDERS: PCP Internal Medicine; Visit Provider Physician Assistant
DX: M25.561 Pain in right knee (principal); M25.512 Pain in left shoulder
CPT/HCPCS: 73564

== ENCOUNTER 2024-08-06 10:26 | Outpatient (AMB) | payer BC, SELFPAY ==
--- NOTE | 2024-08-06 11:15 | MHC.OFFWIV ---
Intake Vital Signs 08/06/24 11:19 Weight 174 lb BP 120/80 Blood Pressure Location Lt brachial Position Sitting Pulse 53 Pulse Source Pulse Oximeter Pulse Oximetry (%) 98 Oxygen Delivery Method Room Air Intake Visit Reasons: EP LT shoulder pain, RT knee pain Intake Note: Patient here for left shoulder pain and right knee pain that has been present for about 1 month. Patient Tobacco Use Status: Never used Tobacco Allergies No Known Allergies Allergy (Verified 08/06/24 11:19) Do you need a note to return to daycare/school/sports/work: No HPI HPI Comments History of Present Illness Details This is a 64-year-old male with a past medical history of hypertension hyperlipidemia presenting for evaluation of left shoulder pain and right knee pain that he has had for the past 1 month. Patient denies any injury or trauma preceding the onset of his symptoms. Patient is a long-time runner but has noted pain in his right medial knee most often after a period of inactivity when standing. The pain is intermittent and he can not predict when he will feel this pain. Patient is also complaining of a throbbing sensation that is also intermittent in his left shoulder and left deltoid for the past 1 month. Patient believes he may have over strained his shoulder while at the gym. Patient is taking 400 mg of ibuprofen at nighttime only to help him fall asleep. [facility] Medical History BPH (benign prostatic hyperplasia) HTN (hypertension) Elevated cholesterol Surgical History History of prostate surgery Hx of cystoscopy H/O colonoscopy Social History Patient Tobacco Use Status: Never used Tobacco Review of Systems Const All systems reviewed & are unremarkable except as noted in HPI and below Eyes Reports no additional complaints ENT Reports no additional complaints Card Reports no additional complaints Resp Reports no additional complaints GI Reports no additional complaints Reports no additional complaints Musc Denies back pain, Reports arthralgias (left shoulder, right knee) and Denies limited range of motion Skin/Breast Reports system reviewed and no additional complaints, except as documented Neuro Reports no additional complaints Psych Reports no additional complaints Endo Reports no additional complaints Slava/Lymph Reports no additional complaints Aller/Immun Reports no additional complaints Physical Exam Vital Signs: Last Vital Signs Pulse 53 08/06/24 11:19 BP 120/80 08/06/24 11:19 Pulse Ox 98 08/06/24 11:19 Oxygen Delivery Method Room Air 08/06/24 11:19 Const General: cooperative, comfortable, no acute distress, well developed, alert, awake and Physically active Nutritional Appearance: well nourished Orientation/consciousness: patient oriented x3 Limitations: no limitations Skin General skin exam: no rashes or lesions noted Neuro General: patient oriented x3 Extrem General: Yes normal to inspection, Yes full ROM and Yes normal gait Left upper extremity: normal to inspection, full ROM, no joint enlargement, shoulder/upper arm (pain left deltoid with abduction and external rotation LUE) and elbow/forearm Details: normal to inspection and normal ROM; no edema Right lower extremity: normal to inspection, full ROM, no joint enlargement and knee Details: normal to inspection, normal ROM and knee ligament exam normal; no tenderness, no swelling, no crepitus and no unusual warmth; no edema Psych Appearance: grossly normal Mental Status: mental status grossly normal Insight: Good insight present (Psych) Judgement: Good judgement present (Psych) Assessment & Plan Assessment & Plan (1) Knee pain: Comment: Pain may be related to pathology involving the the meniscus or ligamentous injury however plain film imaging will be obtained today. Code(s): M25.569 - Pain in unspecified knee Qualifiers: Chronicity: acute Laterality: right Qualified Code(s): M25.561 - Pain in right knee Plan: Patient will follow up with Orthopedics as an outpatient. (2) Left shoulder pain: Comment: Patient has pain with external rotation of the left upper extremity as well as abduction of the left upper extremity against resistance. Suspect a tendinopathy and Naprosyn will be prescribed. Code(s): M25.512 - Pain in left shoulder Qualifiers: Chronicity: acute Qualified Code(s): M25.512 - Pain in left shoulder Plan: Naprosyn 500 mg b.i.d. times 10 days. Medications: New naproxen (Naprosyn) 500 mg PO BID 20 tabs 0RF Coding Level of Care Code Est Pt Level 3 (37472) Diagnoses Acute pain of right knee M25.561 Chronicity: acute Laterality: right Acute pain of left shoulder M25.512 Chronicity: acute Time Spent (min) 20
[2024-08-06 11:19] VITALS: BP 120/80; PULSE 53; O2SAT 98
--- OUTSIDE RECORDS SUMMARY | 2024-08-06 11:38 | XMS_ITS ---
Author Organization [facility] Address [address] [place] [address] Care Team Providers Care Rehabilitation Therapy Aide Name Role Phone Can Camp MD Primary Care Provider Unavaila Marcell Cage [phone] REASON FOR VISIT BUY Encounters Encounter Location Date Provider Diagnosis [facility] [address] [place] [address] 06/29/2023 Marcell Wood Plan Of Treatment No Information Progress Notes * Harper OCHOAOB:[birth year] (63 yo M)Acc No.[id number]:06/29/2023 Patient:?Roland Ochoa :1960???Age:63 Y???Sex:Male [address] [facility] [facility] [place], [address] * true * Date:? Generated for Printi anna/Michael/eTransmitting on:?08/06/2024 11:38 AM EDT
--- OUTSIDE RECORDS SUMMARY | 2024-08-06 11:38 | XMS_ITS ---
Author Organization [facility] Address [address] [place] [address] Care Team Providers Care Biodiesel Product Manager Name Role Phone Lauren Mckeon, Radha Primary Care Provider Wyatt Conde Jr [phone] REASON FOR VISIT screening Encounters Encounter Location Date Provider Diagnosis [facility] Outpatient [address] [place] [phone] 07/12/2024 Wyatt Infante Jr Colon cancer screening Z12.11 and FH: colon polyps Z83.719 Assessments Encounter Date Diagnosis (ICD Code) Assessment Notes Treatment Notes Treatment Clinical Notes Section Notes 07/12/2024 Colon cancer screening (ICD-10 - Z12.11) 07/12/2024 FH: colon polyps (ICD-10 - Z83.719) Plan Of Treatment No Information Progress Notes * PING OCHOAOB:[birth year] (64 yo M)Acc No.[id number]:07/12/2024 COLON WITH MAC Patient:?HARRY OCHOA Provider:?Wyatt Infante MD :1960???Age:64 Y???Sex:Male Esteban e:07/12/2024 Address:[address] [place] [address] Pcp:Radha Aguilar M.D. Subjective: * Chief Complaints: * ???1. Screening. * Medical History:? Objective: * Vitals:? Assessment: * Assessment: 1.?Colon cancer screening - Z12.11 (Primary)???2.?FH: colon polyps - Z83.719??? Plan: * Treatment: * Procedure Codes:?68044 DIAGN OSTIC COLONOSCOPY, 0529F INTRVL 3+YRS PTS CLNSCP DOCD * * The named appointment provid er may or may not be the originator of this progress note, and it is not deemed complete until electronically signed by the appointment provider. Sign off status: Pending * Provider:?Wyatt Infante MD Date:?0 07/12/2024 Generated for Rodney castillo/Michael/eTransmitting on:?08/06/2024 11:38 AM EDT
--- OUTSIDE RECORDS SUMMARY | 2024-08-06 11:38 | XMS_ITS ---
Author Organization [facility] Address [address] [place] [address] Care Team Providers Care It Instructor Name Role Phone Can Camp MD Primary Care Provider Unavaila Marcell Cage [phone] REASON FOR VISIT Pedag Viva sport Encounters Encounter Location Date Provider Diagnosis [facility] [address] [place] [address] 05/29/2023 Marcell Wood Plan Of Treatment No Information Progress Notes * Harper OCHOAOB:[birth year] (63 yo M)Acc No.[id number]:05/29/2023 Patient:?Roland Ochoa :1960???Age:63 Y???Sex:Male Address:[address] [place], [address] * true * Date:? Generated for Adriani anna/Michael/eTransmitting on:?08/06/2024 11:37 AM EDT
--- OUTSIDE RECORDS SUMMARY | 2024-08-06 11:38 | XMS_ITS ---
Author Organization [facility] Address [address] [place] [address] Care Team Providers Care Piano Technician Name Role Phone Can Camp MD Primary Care Provider Danyellea Marcell Cage [phone] Allergies No Known Allergies REASON FOR VISIT [...] 06/29/2023 Encounters Encounter Location Date Provider Diagnosis [facility] [address] [place] [address] 06/29/2023 Marcell Wood Pain in right foot [...] * Harper OCHOAOB:[birth year] (63 yo M)Acc No.[id number]:06/29/2023 Progress Notes Patient:?Roland Ochoa Provider:?Marcell Wood DPM :1960???Age:63 Y???Sex:Male Esteban e:06/29/2023 Address:[address] [place], [place] [phone] Pcp:Can Camp MD Subjective: * Chief Complaints: [...] running, gym. ?Marital status: single. ?Occupation: [employer]. * Medications:?TakingFish Oil Multivitamin , Notes: One [...] DPM Date:? 024 Generated for Rodney castillo/Michael/eTransmitting on:?08/06/2024 11:38 AM EDT History and Physical Notes * HPI [...]
--- OUTSIDE RECORDS SUMMARY | 2024-08-06 11:38 | XMS_ITS | Patient Health Record ---
Author Organization [facility] Address [address] [place] [address] Care Team Providers Care Commodity Buyer Name Role Phone Lauren Mckeon, Radha Primary Care Provider Unavail able Wyatt Infante Jr Unavailable Allergies No Known Allergies Reason For Referral Referring Provider First Name Can Referring Provider Last Name Conrado Referring Provider Speciality Internal M edicine Referred Organization [facility] Referred Provider Wyatt Infante Jr Referred Address [address],[place], [place],[address],[place] Referred Provider Specialty Gastroentero logy General Notes Sophia Mccarthy 024 01:18:30 PM EST > requested an o blue referral from dr juarez's office for visit with Dr. Infante on 04-22-2024 ( said 03-27-24) [phone], Sophia Mccarthy 04/10/2024 03:55:01 PM EST > requested again Referral Priority Routine Referring Provider First Name Radha Referring Provider Last Name Lauren Referred Organization [facility] Referred Provider Wyatt Infante Jr Referred Address [address],[place], [place],[address], Referred Provider Specialty Gastroentero logy General Notes Sophia Mccarthy 2024 11:06:18 AM >Need referral for procedure with Dr. Infante on 07-12-24 [address] from Dr[address] Juarez to Radha Suarez. Referral Priority Routine Medications Medication SIG (Take, [...] Risk Notes Problem External hemorrhoids without complication (76793334) External hemorrhoids without mention of complication (455.3) Active confirmed Problem Special screening for malignant neoplasms, colon (V76.51) Active confirmed Problem 446416387 Special screening for malignant neoplasms, colon (Z12.11) Active confirmed Problem 834524557 Encounter for other preprocedural examination (Z01.818) Active confirmed Problem 061539013868492 Encounter for long-term (current) use of NSAIDs (Z79.1) Active confirmed Vital Signs Temperature 96.9 degrees Fahrenheit 04/22/2024 Blood pressure diastolic 00 mm Hg 04/22/2024 Height 67 in 04/22/2024 Blood pressure systolic 000 mm Hg 04/22/2024 Weight 172 lb 4 oz lbs 04/22/2024 BMI 26.98 kg/m2 04/22/2024 Encounters Encounter Location Date Provider Diagnosis [facility] Outpatient [address] [place] [phone] 07/12/2024 Wyatt Infante Jr Colon cancer screening Z12.11 and FH: colon polyps Z83.719 [facility] [address] [place] [address] 04/22/2024 Wyatt Infante Jr Special screening for malignant neoplasms, colon Z12.11 ; Encounter for other preprocedural examination Z01.818 and Encounter for long-term (current) use of NSAIDs Z79.1 [facility] [address] [place] [address] 07/09/2024 Wyatt Infante Jr Assessments Encounter Date Diagnosis (ICD Code) Assessment Notes Treatment Notes Treatment Clinical Notes Section Notes 07/12/2024 Colon cancer screening (ICD-10 - Z12.11) 07/12/2024 FH: colon polyps (ICD-10 - Z83.719) 04/22/2024 Special screening for malignant neoplasms, colon [...] Name Order Date COLONOSCOPY 07/13/2011 COLONOSCOPY 04/22/2024 Insurance Providers Payer Name Payer Address Payer Phone Subscriber Number Group Number Insured Name Patient Relationship to Insured Coverage Start Date Coverage End Date [facility] [place] [facility] [employer] CLAIMS [address] [place] [address] [id number] HARRY OCHOA Self - patient is the insured Medical (General) History Medical History History ICD Code Hyperlipidemia enlarged prostate Hypertension Colonoscopy 08/29, hyperplastic polyp, fi ve-year followup Surgical History Surgery Date(Month/Year) cystoscopy and prostate surgery
--- OUTSIDE RECORDS SUMMARY | 2024-08-06 11:39 | XMS_ITS ---
Author Organization [facility] Address [address] [place] [address] Care Team Providers Care Lathe Puller Name Role Phone Radha Aguilar M.D. Primary Care Provider Unavail Wyatt Uribe Jr Unavailable Allergies No Known Allergies REASON FOR VISIT [...] Problem Status W/U Status Risk Notes Problem 220805900 Special screenin g for malignant neoplasms, colon (Z12.11) Active confirmed Problem 915802695 Encounter for other preprocedural examination (Z01.818) Active confirmed Problem 930563420013742 Encounter for long-term (current) use of NSAIDs (Z79.1) Active confirmed Vital Signs Temperature 96.9 degrees Fahrenheit 04/22/19 25 Blood pressure systolic 000 mm Hg 04/22/19 25 Blood pressure diastolic 00 mm Hg 025 Height 67 in 04/22/2024 Weight 172 lb 4 oz lbs 04/22/2024 BMI 26.98 kg/m2 04/22/2024 Encounters Encounter Location Date Provider Diagnosis [facility] [address] [place] [address] 04/22/2024 Wyatt Infante Jr Special screening for [...] Appt Details Follow Up: 1 Year, Reason: Progress Notes * SCOTTALBER BARRAGANBAYLEEOB:[birth year] (63 yo M)Acc No.[id number]:04/22/2024 Progress Notes Patient:?ROLAND OCHOA Provider:?Wyatt Infante MD :1960???Age:63 Y???Sex:Male Esteban e:04/22/2024 Address:[address] [place], [place] [id number] Pcp:Can Camp MD Subjective: * Chief Complaints: [...] Infante MD Date:?0 04/22/2024 Generated for Rodney castillo/Michael/eTransmitting on:?08/06/2024 11:38 AM [...]
--- OUTSIDE RECORDS SUMMARY | 2024-08-06 11:39 | XMS_ITS ---
Author Organization [facility] Address [address] [place] [address] Care Team Providers Care Wall Cleaner Name Role Phone Radha Aguilar M.D. Primary Care Provider Wyatt Conde Jr [phone] REASON FOR VISIT see who is listed as pcp Encounters Encounter Location Date Provider Diagnosis [facility] [address] [place] [address] 07/09/2024 Wyatt Infante Jr Plan Of Treatment No Information Progress Notes * MARTINALBER WAGNERBAYLEEOB:[birth year] (64 yo M)Acc No.[id number]:07/09/2024 Patient:?HARRY OCHOA :1960???Age:64 Y???Sex:Male Address:[address] [place] [address], [address] * true * Date:? Generated for Adriani anna/Michael/eTransmitting on:?08/06/2024 11:38 AM EDT
--- OUTSIDE RECORDS SUMMARY | 2024-08-06 11:39 | XMS_ITS | Patient Health Record ---
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 Plan Of Treatment Pending Test Test Name Order Date X ray : Foot, left 2V 06/27/2016 X ray : Foot, right 2V 06/27/2016 X ray : Foot, right 3V 09/07/2017 X ray : Foot, right 3V 05/29/2023 Insurance Providers Payer Name Payer Address Payer Phone Subscriber Number Group Number Insured Name Patient Relationship to Insured Coverage Start Date Coverage End Date [facility] [address] [facility] [place] [address] [phone] [id number] Roland Tabares Self - patient is the insured Medical (General) History Medical History History ICD Code Back,Hip,and Knee pain Broken bones CAD (Cholesterol) Chicken pox High blood pressure Cataracts covid-19 Surgical History Surgery Date(Month/Year) tortion wisdom teeth extraction colonoscopy
== END 2024-08-06 12:03 | disposition home or self-care (01) ==
PROVIDERS: PCP Internal Medicine; Visit Provider Physician Assistant
DX: M25.561 Pain in right knee (principal); M25.512 Pain in left shoulder

== ENCOUNTER → 2024-08-06 11:56 | Outpatient (BNV) | payer BC, SELFPAY | PROVIDERS: PCP Internal Medicine; Visit Provider Radiology Diagnostic Radiology | DX: M25.561 Pain in right knee (principal) | CPT/HCPCS: 73564 ==

== ENCOUNTER 2024-09-05 08:45 | Outpatient (AMB) | payer BC, SELFPAY ==
[2024-09-05 08:50] VITALS: BP 122/80; PULSE 60; TEMP 36.6; O2SAT 96; BMI 26.0
--- NOTE | 2024-09-05 08:50 | A.OFFPC_ITS ---
Vital Signs 09/05/24 08:50 Height 5 ft 7 in Weight 166 lb BMI 26.0 BP 122/80 Blood Pressure Location Lt brachial Position Sitting Pulse 60 Pulse Source Pulse Oximeter Temp 97.8 F Temp Source Axillary Pulse Oximetry (%) 96 Oxygen Delivery Method Room Air Intake Visit Reasons: Routine Photostatic Copy Maker Required: No Accompanied by: Self / Same As Patient Allergies No Known Allergies Allergy (Verified 09/05/24 08:50) Tobacco use date assessed: 09/05/24 Dental Screening Dental Screen Date: 09/05/24 Did you have a dental visit in the last 12 months?: Yes Did you have a dental problem in the last 6 months where you did not have access to dental care?: No HPI HPI Comments History of Present Illness Details This is a 64-year-old male with a past medical history of hypertension hyperlipidemia presenting for follow up. Last seen by pcp in nov CV: on zetia and lisinopril. Blood pressure 122/80. Denies chest pain, dyspnea. Seen in urgent care last month for left shoulder pain and right knee pain that he has had for the past 1 month. Patient denies any injury or trauma preceding the onset of his symptoms. Patient is a long-time runner but has noted pain in his right medial knee most often after a period of inactivity when standing. The pain is intermittent and he can not predict when he will feel this pain. Patient is also complaining of a throbbing sensation that is also intermittent in his left shoulder and left deltoid for the past 1 month. Patient believes he may have over strained his shoulder while at the gym. Patient is taking 400 mg of ibuprofen at nighttime only to help him fall asleep. Despite stretching, otc medications he continues to have pain and weakness in the left shoulder and right knee. colonoscopy 06/2024-10 years. ROS see HPI PHYSICAL EXAM: GENERAL: Alert and oriented x 3. NAD EYES: EOMI. Anicteric. HENT: Moist mucous membranes. No scleral icterus. No cervical lymphadenopathy. LUNGS: Clear to auscultation bilaterally. CARDIOVASCULAR: Regular rate and rhythm. No murmur. No JVD. ABDOMEN: Soft, non-tender +bs EXTREMITIES: No edema. Non-tender. MSK: Difficult left shoulder shrug. Pain with abduction. Right knee with pain with valgus stress SKIN: No rashes or lesions. Warm. NEUROLOGIC: No focal neurological deficits. CN II-XII grossly intact PSYCHIATRIC: Cooperative. Appropriate mood and affect [facility] Medical History BPH (benign prostatic hyperplasia) HTN (hypertension) Elevated cholesterol Surgical History History of prostate surgery Hx of cystoscopy H/O colonoscopy (~07/12/24) Family History Mother No problems noted. Father No problems noted. Social History Housing: House Patient Tobacco Use Status: Never used Tobacco e-Cigarette/Vaping Use: Never Used service: No Current occupational status: retired Cognitive needs: No Hearing needs: No Vision needs: Yes (rx glasses) Questionnaire PHQ-9 Over the last 2 weeks, how often have you been bothered by any of the following problems? 1. Little interest or pleasure in doing things: not at all 2. Feeling down, depressed, or hopeless: not at all 3. Trouble falling or staying asleep, or sleeping too much: not at all 4. Feeling tired or having little energy: not at all 5. Poor appetite or overeating: not at all 6. Feeling bad about yourself - or that you are a failure or have let yourself or your family down: not at all 7. Trouble concentrating on things, such as reading the newspaper or watching television: not at all 8. Moving or speaking so slowly that other people could have noticed. Or the opposite - being so fidgety or restless that you have been moving around a lot more than usual: not at all 9. Thoughts that you would be better off or of hurting yourself in some way: not at all Total score: 0 Depression Screening Interpretation: Negative Depression Screening Done: Yes 73826 - PHQ-9 Billing: Yes Source: Developed by Drs. Hector Medina, Leonora Bourgeois, Jc Talamantes and colleagues, with an educational maribell from [employer]. Thrive Questionnaire Date Thrive assessed: 09/05/24 I am a: Patient Within the past 12 months, did the food you bought not last and you didn't have the money to get more?: Never true Within the past 12 months, did you worry whether your food would run out before you got money to buy more?: Never true Do you have trouble paying for medicines?: No Do you have trouble getting transportation to medical appointments?: No Do you have trouble paying your heating and electricity bill?: No Do you have trouble taking care of your child, family member or friend?: No Do you have trouble with day-to-day activities such as bathing, preparing meals, shopping, managing finances, etc.?: No Are you currently unemployed and looking for a job?: No Are you interested in more education?: No THRIVE Score: 0 AUDIT C Alcohol Use Questionnaire (AUDIT-C) 1. How often do you have a drink containing alcohol?: Monthly or less 2. How many drinks containing alcohol do you have on a typical day when you are drinking?: 1 or 2 3. How often do you have six or more drinks on one occasion?: Less than monthly Total Score: 2 PIPPA-7 AMB Questionnaire PIPPA-7 Date PIPPA - 7 assessed: 09/05/24 Feeling nervous, anxious, or on edge: 0 = Not at all Not being able to stop or control worryin = Not at all Worrying too much about different things: 0 = Not at all Trouble relaxin = Not at all Being so restless that it is hard to sit still: 0 = Not at all Becoming easily annoyed or irritable: 0 = Not at all Feeling afraid as if something awful might happen: 0 = Not at all Total PIPPA-7 score (0-4 normal; 5-9 mild; 10-14 moderate; 15-21 severe): 0 Source: Developed by Drs. Hector Medina, Leonora Bourgeois, Jc Talamantes and colleagues, with an educational maribell from [employer]. Physical exam (Primary Care) Vital Signs: Last Vital Signs Temp 97.8 F 09/05/24 08:50 Pulse 60 09/05/24 08:50 BP 122/80 09/05/24 08:50 Pulse Ox 96 09/05/24 08:50 Oxygen Delivery Method Room Air 09/05/24 08:50 BMI result Body Mass Index 26.0 Tobacco/Smoking Status: Tobacco use Status Tobacco use date assessed 09/05/24 09/05/24 08:52 Patient Tobacco Use Status Never used Tobacco 09/05/24 08:52 e-Cigarette/Vaping Use Never Used 09/05/24 08:52 PHQ-9: PHQ-9 Score PHQ-9: Total score 0 09/08/24 12:33 Depression Screening Interpretation: Negative Thrive Assessment: Date of Thrive Assessment Date Thrive assessed 09/05/24 09/05/24 08:52 Coding Level of Care Code New Pt Level 4 (89156) Complex EM visit Add On G2211 Diagnoses Primary hypertension I10 Hypertension type: primary hypertension Elevated cholesterol E78.00 Left supraspinatus tendinitis M75.92 Laterality: left Polyarthralgia M25.50 Additional Codes PHQ-9 - 83867 - PHQ-9 Billing: Yes ([id number]) Assessment & Plan Assessment & Plan (1) HTN (hypertension): Code(s): I10 - Essential (primary) hypertension Category: Medical Qualifiers: Hypertension type: primary hypertension Qualified Code(s): I10 - Essential (primary) hypertension (2) Elevated cholesterol: Code(s): E78.00 - Pure hypercholesterolemia, unspecified Category: Medical (3) Supraspinatus tendinitis: Code(s): M75.90 - Shoulder lesion, unspecified, unspecified shoulder Category: Medical Qualifiers: Laterality: left Qualified Code(s): M75.92 - Shoulder lesion, unspecified, left shoulder (4) Polyarthralgia: Code(s): M25.50 - Pain in unspecified joint Category: Medical Plan 64 yo to establish care Past medical, surgical, social reviewed Left shoulder concerning for rotator cuff pathology. Right knee concerning for MCL pathology. MR ordered. Trial prednisone. Referral to orthopedics Labs ordered Orders: Orders Complete Blood Count Auto Diff 09/05/24 E78.00 - Pure hypercholesterolemia, unspecified, I10 - Essential (primary) hypertension, N40.0 - Benign prostatic hyperplasia without lower urinary tract symptoms Prostate Specific Antigen 09/05/24 E78.00 - Pure hypercholesterolemia, unspecified, I10 - Essential (primary) hypertension, N40.0 - Benign prostatic hyperplasia without lower urinary tract symptoms Lyme IgG/IgM w/reflex to WB 09/05/24 M25.50 - Pain in unspecified joint Erythrocyte Sedimentation Rate 09/05/24 M25.50 - Pain in unspecified joint MR knee RT wo con 09/05/24 M25.561 - Pain in right knee MR shoulder LT wo con 09/05/24 M25.512 - Pain in left shoulder, M75.90 - Shoulder lesion, unspecified, unspecified shoulder Comprehensive Met. Panel 09/05/24 E78.00 - Pure hypercholesterolemia, unspecif ied, I10 - Essential (primary) hypertension, N40.0 - Benign prostatic hyperplasia without lower urinary tract symptoms Lipid Panel 09/05/24 E78.00 - Pure hypercholesterolemia, unspecified, I10 - Essential (primary) hypertension, N40.0 - Benign prostatic hyperplasia without lower urinary tract symptoms Creatine Kinase Total 09/05/24 M25.512 - Pain in left shoulder, M25.561 - Pain in right knee Referrals Orthopedics Referral M25.512 - Pain in left shoulder, M25.561 - Pain in right knee Medications: New ibuprofen 200 mg PO Q6H PRN 200 tabs 3RF Pain lisinopril 10 mg PO DAILY 90 tabs 3RF ezetimibe 10 mg PO DAILY 90 tabs 3RF prednisone 40 mg (2 x 20 mg) PO DAILY 10 tabs 0RF
--- OUTSIDE RECORDS SUMMARY | 2024-09-05 09:11 | XMS_ITS | Patient Health Record ---
Author Organization [facility] Address [address] [place] [address] Care Team Providers Care Women'S Basketball Coach Name Role Phone Lauren Mckeon, Radha Primary Care Provider Unavail able Wyatt Infante Jr Unavailable Allergies No Known Allergies Reason For Referral Referring Provider First Name Can Referring Provider Last Name Conrado Referring Provider Speciality Internal M edicine Referred Organization [facility] Referred Provider Wyatt Infante Jr Referred Address [address],[place], [place],[address],[place] Referred Provider Specialty Gastroentero logy General Notes Sophia Mccarthy 024 01:18:30 PM EST > requested an o blue referral from dr juarez's office for visit with Dr. Infante on 04-22-2024 ( said 03-27-24) [phone], Sophia Mccarthy 04/10/2024 03:55:01 PM EST > requested again Referral Priority Routine Referring Provider First Name Radha Referring Provider Last Name Lauren Referred Organization [facility] Referred Provider Wyatt Infante Jr Referred Address [address],[place], [place],[address], Referred Provider Specialty Gastroentero logy General Notes [...] Risk Notes Problem External hemorrhoids without complication (35853040) External hemorrhoids without mention of complication (455.3) Active confirmed Problem Screening for malignant neoplasm of colon (446035834) Special screening for malignant neoplasms, colon (V76.51) Active confirmed Problem 878481847 Special screening for malignant neoplasms, colon (Z12.11) Active confirmed Problem 512653030 Encounter for other preprocedural examination (Z01.818) Active confirmed Problem 467420033397671 Encounter for long-term (current) use of NSAIDs (Z79.1) Active confirmed Vital Signs Temperature 96.9 degrees Fahrenheit 04/22/2024 Blood pressure diastolic 00 mm Hg 04/22/2024 Height 67 in 04/22/2024 Blood pressure systolic 000 mm Hg 04/22/2024 Weight 172 lb 4 oz lbs 04/22/2024 BMI 26.98 kg/m2 04/22/2024 Encounters Encounter Location Date Provider Diagnosis [facility] Outpatient [address] [place] [id number] 07/12/2024 Wyatt Infante Jr Colon cancer screening Z12.11 and FH: colon polyps Z83.719 [facility] [address] [place] [phone] 04/22/2024 Wyatt Infante Jr Special screening for malignant neoplasms, colon Z12.11 ; Encounter for other preprocedural examination Z01.818 and Encounter for long-term (current) use of NSAIDs Z79.1 [facility] [address] [place] [phone] 07/09/2024 Wyatt Infante Jr Assessments Encounter Date [...] Insured Coverage Start Date Coverage End Date [facility] BLUE [employer] PROF[employer]AL CLAIMS [address] [place] [address] [id number] HARRY OCHOA Self - patient is the insured Medical (General) History Medical History History ICD Code Hyperlipidemia enlarged prostate Hypertension Colonoscopy 08/29, hyperplastic polyp, fi ve-year followup Surgical History Surgery Date(Month/Year) cystoscopy and prostate surgery
== END 2024-09-05 09:32 | disposition home or self-care (01) ==
LOC: HO.HMCHD 08:46
PROVIDERS: PCP Internal Medicine; Visit Provider Internal Medicine
DX: I10 Essential (primary) hypertension (principal); E78.00 Pure hypercholesterolemia, unspecified; M75.92 Shoulder lesion, unspecified, left shoulder; M25.50 Pain in unspecified joint

== ENCOUNTER → 2024-09-05 08:45 | Outpatient (BNVA) | payer BC, SELFPAY | PROVIDERS: PCP Internal Medicine; Visit Provider Internal Medicine | DX: I10 Essential (primary) hypertension (principal); E78.00 Pure hypercholesterolemia, unspecified; M75.92 Shoulder lesion, unspecified, left shoulder; M25.512 Pain in left shoulder; M25.561 Pain in right knee; Z79.899 Other long term (current) drug therapy; Z13.30 Encounter for screening examination for mental health and behavioral disorders, unspecified; Z13.31 Encounter for screening for depression | CPT/HCPCS: 96127 ==

== ENCOUNTER 2024-09-05 09:35 | Outpatient (REF) | payer BC, SELFPAY ==
[2024-09-05 10:39] LABS: MANUAL DIFF FLAG NO
[2024-09-05 10:44] LABS: Basophils Absolute Auto 0.1 X10*3/uL (0.0-0.2); Eosinophils Absolute Auto 0.1 X10*3/uL (0.0-0.4); Eosinophils Percent Auto 1.9 % (0-4); Hematocrit 40.8 % (42.0-52.0); Hemoglobin 13.7 g/dl (14.0-18.0); Imm Gran Abs Auto 0.01 X10*3/uL (0.00-0.03); Imm Gran Pct Auto 0.1 % (0.0-0.4); Lymphocytes Absolute Auto 2.6 X10*3/uL (1.2-4.9); Mean Corpuscular HGB Conc 33.6 g/dl (31.0-36.0); Mean Corpuscular Hemoglobin 31.1 pg (27.0-33.0); Mean Corpuscular Volume 92.5 fL (80.0-98.0); Mean Platelet Volume 9.2 fL (9.4-12.4); Monocytes Absolute Auto 0.5 X10*3/uL (0.1-1.2); Neutrophils Absolute Auto 3.4 x10*3/uL (2.0-8.3); Platelet Count 305 X10*3/uL (160-400); Red Blood Count 4.41 X10*6/uL (4.60-5.80); Red Cell Distribution Width 13.1 % (11.0-16.0); White Blood Count 6.7 X10*3/uL (4.8-10.8)
[2024-09-05 11:24] LABS: Erythrocyte Sedimentation Rate 7 MM/HR (0-15)
[2024-09-05 11:28] LABS: Alanine Aminotransferase 17 U/L (0-40); Albumin Level 4.7 g/dL (3.5-5.0); Alkaline Phosphatase 56 U/L (39-117); Anion Gap 12 (12-20); Aspartate Amino Transferase 46 U/L (5-37); Bilirubin Total 0.3 mg/dL (0.0-1.0); Blood Urea Nitrogen 16 mg/dL (9-16); Calcium 9.5 mg/dL (8.4-10.2); Carbon Dioxide 26 mmol/L (22-29); Chloride 109 mmol/L (96-108); Cholesterol 193 mg/dL (<200); Estimated Glomerular Filt Rate > 60; Glucose Random 101 mg/dL (60-115); HDL Cholesterol 58 mg/dL (>40); LDL Cholesterol Calculated 123 mg/dL (<100); Potassium 4.1 mmol/L (3.3-5.1); Sodium 143 mmol/L (135-145); Triglycerides 62 mg/dL (<150)
[2024-09-06 17:38] LABS: Lyme Abs Screen <0.90 index
== END 2024-09-05 09:36 | disposition home or self-care (01) ==
LOC: HO.10HDL 09:35
PROVIDERS: Visit Provider Internal Medicine
DX: M25.512 Pain in left shoulder (principal); M25.561 Pain in right knee; M25.50 Pain in unspecified joint; N40.0 Benign prostatic hyperplasia without lower urinary tract symptoms; E78.00 Pure hypercholesterolemia, unspecified; I10 Essential (primary) hypertension
CPT/HCPCS: 36415; 80053; 80061; 82550; 85025; 85652; 86617; 86618

== ENCOUNTER 2024-11-20 12:00 | Outpatient (RCR) | payer BC, SELFPAY | END 2024-11-20 13:33 | disposition home or self-care (01) | LOC: HO.PT 12:00 | PROVIDERS: PCP Internal Medicine; Visit Provider Internal Medicine | DX: M25.512 Pain in left shoulder (principal); M25.561 Pain in right knee | CPT/HCPCS: 97110; 97161; 97530 ==

== ENCOUNTER 2024-11-27 08:59 | Outpatient (AMB) | payer BC, SELFPAY ==
--- OUTSIDE RECORDS SUMMARY | 2024-07-12 04:10 | XMS_ITS ---
Author Organization [facility] Address [address] [place] [address] Care Team Providers Care Farm Supervisor Name Role Phone Radha Aguilar M.D. Primary Care Provider Wyatt Conde Jr [phone] REASON FOR VISIT screening Encounters Encounter Location Date Provider Diagnosis [facility] Outpatient [address] [place] [phone] 07/12/2024 Wyatt Infante Jr Colon cancer screening Z12.11 and FH: colon polyps Z83.719 Assessments Encounter Date Diagnosis (ICD Code) Assessment Notes Treatment Notes Treatment Clinical Notes Section Notes 07/12/2024 Colon cancer screening (ICD-10 - Z12.11) 07/12/2024 FH: colon polyps (ICD-10 - Z83.719) Plan Of Treatment No Information Progress Notes * PING OCHOAOB:[birth year] 63 (64 yo M)Acc No.[id number]:07/12/2024 COLON WITH MAC Patient: HARRY WELLS Provider: Tom Infante MD :1960 A ge:64 Y S ex:Male Date:07/12/2024 Address:[address] [place], [place] [phone] Pcp:Radha Aguilar M.D. Subjective: * Chief Complaints: [...] 07/12/2024 Generated for Rodney castillo/Michael/Tuckeritting on: 0 11/27/2024 10:38 AM EDT
--- NOTE | 2024-11-27 09:12 | MHC.OFFVIS ---
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 Patient initially seen at [facility] walk in clinic in July for ongoing pain in his knee for about a month. No known injury. He follow up with PCP who referred to physical therapy and orthopedics. Patient reports that he has been attending physical therapy. States his pain varies, and is located at the medial aspect of knee. He has jolting pain and tightness sensation. He likes to run and has been afraid due to his discomfort. He goes to the gym, he uses a stair master, however he has stopped due to his pain, unsure if this is the cause of his pain. No other treatments. No injury. 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 He is a runner and has pain with running. He has been running for over 20 years. He espinoza been working with PT. He was doing a walk and run and noticed pain in the medial aspect of the knee. Denies mechanical symptoms like catching, locking or buckling. [facility] Medical History BPH (benign prostatic hyperplasia) HTN (hypertension) Elevated cholesterol Surgical History History of prostate surgery Hx of cystoscopy H/O colonoscopy (~07/12/24) Family History Mother No problems noted. Father No problems noted. Social History Housing: House Patient Tobacco Use Status: Never used Tobacco e-Cigarette/Vaping Use: Never Used service: No Current occupational status: retired Cognitive needs: No Hearing needs: No Vision needs: Yes (rx glasses) Review of Systems Const All systems reviewed & are unremarkable except as noted in HPI and below Physical Exam Const General: cooperative and no acute distress Orientation/consciousness: patient oriented x3 Resp Effort & Inspection: normal respiratory effort and able to speak in complete sentences Cardio Peripheral pulses: Peripheral pulses 2+ throughout Neuro General: patient oriented x3 Extrem Other: Right knee normal to inspection he has no joint effusion present. Full range of motion 0-120. Mild tenderness over the medial joint line a negative Alton's. No ligamentous laxity. Neurovascularly intact. Results Reviewed Results Reviewed: X-rays of the right knee obtained in the office today and reviewed by me show mild PF OA. Assessment & Plan Assessment & Plan (1) Patellofemoral arthritis of right knee: Code(s): M17.11 - Unilateral primary osteoarthritis, right knee Category: Medical Plan: We discussed options today which includes continued physical therapy. He has completed a course of physical therapy and is now working on a home exercise program which she will maintain. I did encourage him to use anti-inflammatories for occasional flare-ups and sent him a prescription for ibuprofen 800 mg 3 times a day to the pharmacy which she will take for 2 weeks. If symptoms persist or worsen he can contact our office to discuss steroid injections otherwise he will follow up as needed. Orders: Orders XR knee RT 2V Today M25.569 - Pain in unspecified knee Medications: New ibuprofen 800 mg PO Q8H PRN 90 tabs 3RF pain 30 days S52.209D - Unspecified fracture of shaft of unspecified ulna, subsequent encounter for closed fracture with routine healing Coding Level of Care Code New Pt Level 3 (95074) Complex EM visit Add On G2211 Diagnoses Patellofemoral arthritis of right knee M17.11
--- OUTSIDE RECORDS SUMMARY | 2024-11-27 10:38 | XMS_ITS | Patient Health Record ---
Author Organization [facility] Address [address] [place] [address] Care Team Providers Care Dining Services Manager Name Role Phone Lauren Mckeon, Radha Primary Care Provider Unavail able Wyatt Infante Jr Unavailable Allergies No Known Allergies Reason For Referral Referring Provider First Name aCn Referring Provider Last Name Conrado (RETI RED) Referring Provider Speciality Internal M edicine Referred Organization [facility] Referred Provider Wyatt Infante Jr Referred Address [address],[place], [place],[address],[place] Referred Provider Specialty Gastroentero logy General Notes Sophia Mccarthy 024 01:18:30 PM EST > requested an o blue referral from dr juarez's office for visit with Dr. Infante on 04-22-2024 ( said 03-27-24) [phone], Sophia Mccarthy 04/10/2024 03:55:01 PM EST > requested again Referral Priority Routine Referring Provider First Name Radha Referring Provider Last Name Lauren Referred Organization [facility] Referred Provider Wyatt Infante Jr Referred Address [address] [place] [address],[facility] [address],[place], [place],[address],[place] Referred Provider Specialty Gastroentero logy General Notes [...] Risk Notes Problem External hemorrhoids without complication (06469061) External hemorrhoids without mention of complication (455.3) Active confirmed Problem Screening for malignant neoplasm of colon (171086604) Special screening for malignant neoplasms, colon (V76.51) Active confirmed Problem 013755326 Special screening for malignant neoplasms, colon (Z12.11) Active confirmed Problem 481762876 Encounter for other preprocedural examination (Z01.818) Active confirmed Problem 904995897124997 Encounter for long-term (current) use of NSAIDs (Z79.1) Active confirmed Vital Signs Temperature 96.9 degrees Fahrenheit 04/22/2024 Blood pressure diastolic 00 mm Hg 04/22/2024 Height 67 in 04/22/2024 Blood pressure systolic 000 mm Hg 04/22/2024 Weight 172 lb 4 oz lbs 04/22/2024 BMI 26.98 kg/m2 04/22/2024 Encounters Encounter Location Date Provider Diagnosis [facility] Out[facility] [address] [place] [id number] 07/12/2024 Wyatt Infante Jr Colon cancer screening Z12.11 and FH: colon polyps Z83.719 [facility] [address] [place] [phone] 04/22/2024 Wyatt Infante Jr Special screening for malignant neoplasms, colon Z12.11 ; Encounter for other preprocedural examination Z01.818 and Encounter for long-term (current) use of NSAIDs Z79.1 [facility] [address] [place] [phone] 07/09/2024 Wyatt Infante Jr Assessments Encounter Date [...] Insured Coverage Start Date Coverage End Date [facility] BLUE [employer] PROFESSIONAL CLAIMS [address] [place] [address] [id number] HARRY OCHOA Self - patient is the insured Medical (General) History Medical History History ICD Code Hyperlipidemia enlarged prostate Hypertension Colonoscopy 08/29, hyperplastic polyp, fi ve-year followup Surgical History Surgery Date(Month/Year) cystoscopy and prostate surgery
--- OUTSIDE RECORDS SUMMARY | 2024-11-27 10:39 | XMS_ITS | Patient Health Record ---
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
== END 2024-11-27 09:45 | disposition home or self-care (01) ==
LOC: HO.HOS 09:00
PROVIDERS: PCP Internal Medicine; Visit Provider Physician Assistant
DX: M17.11 Unilateral primary osteoarthritis, right knee (principal)
CPT/HCPCS: 99203

== ENCOUNTER → 2024-11-27 09:06 | Outpatient (BNV) | payer BC, SELFPAY | PROVIDERS: Visit Provider Radiology Diagnostic Radiology | DX: M25.561 Pain in right knee (principal) | CPT/HCPCS: 73560 ==

== ENCOUNTER 2024-11-27 09:49 | Outpatient (REF) | payer BC, SELFPAY ==
--- OUTSIDE RECORDS SUMMARY | 2024-07-12 04:10 | XMS_ITS ---
Author Organization [facility] Address [address] [place] [address] Care Team Providers Care It Systems Analyst Consultant Name Role Phone Radha Aguilar M.D. Primary Care Provider Wyatt Conde Jr REASON FOR VISIT screening Encounters Encounter Location Date Provider Diagnosis [facility] [place] [address] [place] [phone] 07/12/2024 Wyatt Infante Jr Colon cancer screening Z12.11 and FH: colon polyps Z83.719 Assessments Encounter Date Diagnosis (ICD Code) Assessment Notes Treatment Notes Treatment Clinical Notes Section Notes 07/12/2024 Colon cancer screening (ICD-10 - Z12.11) 07/12/2024 FH: colon polyps (ICD-10 - Z83.719) Plan Of Treatment No Information Progress Notes * PING OCHOAOB:[birth year] 63 (64 yo M)Acc No.[id number]:07/12/2024 COLON WITH MAC Patient: HARRY WELLS Provider: Tom Infante MD :1960 A ge:64 Y S ex:Male Date:07/12/2024 Address:[address] [place], [place] [phone] Pcp:Radha Aguilar M.D. Subjective: * Chief Complaints: [...] 07/12/2024 Generated for Rodney castillo/Michael/Tuckeritting on: 0 11/28/2024 11:38 AM EDT
--- NOTE | ~2024-11-27 | XR_ITS ---
EXAMINATION: XR KNEE 1-2 VIEWS RIGHT HISTORY: M25.569 - Pain in unspecified knee COMPARISON: Comparison is made with the prior examination dated 08/06/2024. FINDINGS: Standing AP views of both knees and an additional sunrise patellar view of the right knee are submitted. Osseous mineralization is normal. There is no fracture or dislocation. The joint spaces are preserved. There are vascular calcifications. There is no joint effusion. XR/XR knee RT 2V IMPRESSION: Unremarkable examination of the right knee. Electronically signed by: Hector Garcia MD 11/27/2024 09:19 AM EDT
--- OUTSIDE RECORDS SUMMARY | 2024-11-28 11:38 | XMS_ITS | Patient Health Record ---
Author Organization [facility] Address [address] [place] [address] Care Team Providers Care Clinical Trial Coordinator Name Role Phone Lauren Mckeon, Radha Primary Care Provider Unavail able Wyatt Infante Jr Unavailable Allergies No Known Allergies Reason For Referral Referring Provider First Name Can Referring Provider Last Name Conrado (RETI RED) Referring Provider Speciality Internal M edicine Referred Organization [facility] Referred Provider Wyatt Infante Jr Referred Address [address],[place], [place],[address],[place] Referred Provider Specialty Gastroentero logy General Notes Sophia Mccarthy 024 01:18:30 PM EST > requested an o blue referral from dr juarez's office for visit with Dr. Infante on 04-22-2024 ( said 03-27-24) [phone], Sophia Mccarthy 04/10/2024 03:55:01 PM EST > requested again Referral Priority Routine Referring Provider First Name Radha Referring Provider Last Name aLuren Referred Organization [facility] Referred Provider Wyatt Infante Jr Referred Address [address], [address],[place], [place],[address],[place] Referred Provider Specialty Gastroentero logy General Notes [...] Risk Notes Problem External hemorrhoids without complication (57056034) External hemorrhoids without mention of complication (455.3) Active confirmed Problem Screening for malignant neoplasm of colon (295873495) Special screening for malignant neoplasms, colon (V76.51) Active confirmed Problem 819669325 Special screening for malignant neoplasms, colon (Z12.11) Active confirmed Problem 298714935 Encounter for other preprocedural examination (Z01.818) Active confirmed Problem 408252622600328 Encounter for long-term (current) use of NSAIDs (Z79.1) Active confirmed Vital Signs Temperature 96.9 degrees Fahrenheit 04/22/2024 Blood pressure diastolic 00 mm Hg 04/22/2024 Height 67 in 04/22/2024 Blood pressure systolic 000 mm Hg 04/22/2024 Weight 172 lb 4 oz lbs 04/22/2024 BMI 26.98 kg/m2 04/22/2024 Encounters Encounter Location Date Provider Diagnosis [facility] [place] Outpatient [address] [place] [id number] 07/12/2024 Wyatt Infante Jr Colon cancer screening Z12.11 and FH: colon polyps Z83.719 [facility] [address] [place] [phone] 04/22/2024 Wyatt Infante Jr Special screening for malignant neoplasms, colon Z12.11 ; Encounter for other preprocedural examination Z01.818 and Encounter for long-term (current) use of NSAIDs Z79.1 [facility] [address] [place] [phone] 07/09/2024 Wyatt Infante Jr Assessments Encounter Date [...] Insured Coverage Start Date Coverage End Date [facility]S [address] [place] [address] [id number] 200 HARRY OCHOA Self - patient is the insured Medical (General) History Medical History History ICD Code Hyperlipidemia enlarged prostate Hypertension Colonoscopy 08/29, hyperplastic polyp, fi ve-year followup Surgical History Surgery Date(Month/Year) cystoscopy and prostate surgery
--- OUTSIDE RECORDS SUMMARY | 2024-11-28 11:38 | XMS_ITS | Patient Health Record ---
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
== END 2024-11-27 09:50 | disposition home or self-care (01) ==
LOC: HO.HOSX 09:49
PROVIDERS: Visit Provider Physician Assistant
DX: M17.11 Unilateral primary osteoarthritis, right knee (principal); S52.209D Unspecified fracture of shaft of unspecified ulna, subsequent encounter for closed fracture with routine healing; X58.XXXD Exposure to other specified factors, subsequent encounter
CPT/HCPCS: 73560

== ENCOUNTER 2024-11-28 14:32 | Outpatient (REF) | payer BC, SELFPAY ==
[2024-11-28 16:00] LABS: Appearance Urine Clear; Glucose Urine UA Negative (Negative); PH 5.0 (5.0-9.0); Specific Gravity - Urine 1.015 (1.005-1.025)
== END 2024-11-28 14:33 | disposition home or self-care (01) ==
LOC: HO.LAB 14:32
PROVIDERS: Visit Provider Physician Assistant Medical
DX: R35.0 Frequency of micturition (principal)
CPT/HCPCS: 81003

== ENCOUNTER 2024-11-29 09:35 | Outpatient (REF) | payer BC, SELFPAY ==
[2024-11-29 10:16] LABS: MANUAL DIFF FLAG NO
[2024-11-29 11:02] LABS: Hematocrit 39.1 % (42.0-52.0); Hemoglobin 13.4 g/dl (14.0-18.0); Imm Gran Abs Auto 0.02 X10*3/uL (0.00-0.03); Imm Gran Pct Auto 0.3 % (0.0-0.4); Lymphocytes Absolute Auto 1.9 X10*3/uL (1.2-4.9); Mean Corpuscular HGB Conc 34.3 g/dl (31.0-36.0); Mean Corpuscular Hemoglobin 30.8 pg (27.0-33.0); Mean Corpuscular Volume 89.9 fL (80.0-98.0); NRBC Abs Auto 0.000 X10*3/uL (0.0-0.012); NRBC Pct Auto 0.0 /100WBC (0.0-0.2); Platelet Count 328 X10*3/uL (160-400); Red Blood Count 4.35 X10*6/uL (4.60-5.80); White Blood Count 7.6 X10*3/uL (4.8-10.8)
[2024-11-29 11:16] LABS: Total Hemoglobin (HGBA1C) 3514.4987 umol/L
[2024-11-29 11:40] LABS: Alanine Aminotransferase 55 U/L (0-40); Albumin Level 4.7 g/dL (3.5-5.0); Alkaline Phosphatase 89 U/L (39-117); Anion Gap 13 (12-20); Aspartate Amino Transferase 79 U/L (5-37); Blood Urea Nitrogen 13 mg/dL (9-16); Calcium 9.4 mg/dL (8.4-10.2); Carbon Dioxide 24 mmol/L (22-29); Chloride 106 mmol/L (96-108); Estimated Glomerular Filt Rate > 60; Potassium 4.0 mmol/L (3.3-5.1); Sodium 139 mmol/L (135-145); Total Protein 7.4 g/dL (6.5-8.0)
[2024-11-29 12:11] LABS: Prostate Specific Antigen 15.37 ng/mL (<0.05-4.0)
== END 2024-11-29 09:36 | disposition home or self-care (01) ==
LOC: HO.LAB 09:35
PROVIDERS: Internal Medicine; PCP Physician Assistant Medical; Visit Provider Student in an Organized Health Care Education/Training Program
DX: R35.0 Frequency of micturition (principal); Z12.5 Encounter for screening for malignant neoplasm of prostate; I10 Essential (primary) hypertension; E78.00 Pure hypercholesterolemia, unspecified; N40.0 Benign prostatic hyperplasia without lower urinary tract symptoms
CPT/HCPCS: 36415; 80053; 83036; 84153; 85025

== ENCOUNTER 2024-11-29 09:35 | Outpatient (AMB) | payer BC, SELFPAY ==
--- OUTSIDE RECORDS SUMMARY | 2024-07-12 04:10 | XMS_ITS ---
Author Organization [facility] Address [address] [place] [address] Care Team Providers Care Marketing Officer Name Role Phone Radha Aguilar M.D. Primary Care Provider Wyatt Conde Jr REASON FOR VISIT screening Encounters Encounter Location Date Provider Diagnosis [facility] [place] [address] [place] [phone] 07/12/2024 Wyatt Infante Jr Colon cancer screening Z12.11 and FH: colon polyps Z83.719 Assessments Encounter Date Diagnosis (ICD Code) Assessment Notes Treatment Notes Treatment Clinical Notes Section Notes 07/12/2024 Colon cancer screening (ICD-10 - Z12.11) 07/12/2024 FH: colon polyps (ICD-10 - Z83.719) Plan Of Treatment No Information Progress Notes * PING OCHOAOB:[birth year] 63 (64 yo M)Acc No.[id number]:07/12/2024 COLON WITH MAC Patient: HARRY WELLS Provider: Tom Infante MD :1960 A ge:64 Y S ex:Male Date:07/12/2024 Address:[address] [place], [place] [phone] Pcp:Radha Aguilar M.D. Subjective: * Chief Complaints: * 1 . Screening. * Medical History: Objective: * Vitals: Assessment: * Assessment: 1. C olon cancer screening - Z12.11 (Primary) 2 . F H: colon polyps - Z83.719 Plan: * Treatment: * Procedure Codes: 4 5378 DIAGNOSTIC COLONOSCOPY, 0529F INTRVL 3+YRS PTS CLNSCP DOCD * * The named appointment provid er may or may not be the originator of this progress note, and it is not deemed complete until electronically signed by the appointment provider. Sign off status: Pending * Provider: Tom Infante MD Date: 0 07/12/2024 Generated for Rodney csatillo/Michael/Tuckeritting on: 0 11/29/2024 10:41 AM EDT
--- NOTE | 2024-11-29 09:37 | MHC.PC.OV ---
Vital Signs 11/29/24 09:38 Height 5 ft 7 in Weight 163 lb BMI 25.5 BP 150/76 H Blood Pressure Location Rt brachial Position Sitting Respiration 17 Pulse 73 Pulse Source Pulse Oximeter Temp 97.8 F Temp Source Temporal Artery Scan Pulse Oximetry (%) 98 Oxygen Delivery Method Room Air Intake Visit Reasons: Discuss UC&S / 11/28/24 Project Manager Interior Design Required: No Accompanied by: Self / Same As Patient Allergies No Known Allergies Allergy (Verified 11/29/24 09:37) Tobacco use date assessed: 09/05/24 Dental Screening Dental Screen Date: 09/05/24 HPI HPI Comments History of Present Illness Details The patient is a 64-year-old male presenting with increased urinary frequency and nocturia. The patient reports experiencing frequent urination for the past two to three days, with a sensation of constantly needing to urinate, especially through the night, leading to poor sleep. This condition did not have a gradual onset but appeared quickly. The patient describes minimal burning sensation during urination and denies any sign of infection, confirmed by a clear urine test recently conducted. He has a history of a prostate issue for which he underwent a laser procedure approximately 27 years ago. The patient also reports taking ibuprofen at night for sciatica pain, which might be associated with increased urination. Despite increased hydration initiated recently, the frequency of urination persists, characterized by small amounts each time with occasional dribbling. The patient's established medication routine includes lisinopril for Essential Hypertension, although his blood pressure readings were high during this visit. Medical History: - Essential Hypertension, managed with lisinopril - Sciatica, managed with ibuprofen - History of Benign Prostatic Hyperplasia Surgical History: - Laser procedure for Benign Prostatic Hyperplasia, approximately 27 years ago Medications: - Lisinopril 10 mg for Essential Hypertension - Ibuprofen 600 mg for sciatica pain (current night usage) Diagnostic Results: Labs: - Urine test showing clear results with the presence of ketones PFSH Medical History BPH (benign prostatic hyperplasia) HTN (hypertension) Elevated cholesterol Surgical History History of prostate surgery Hx of cystoscopy H/O colonoscopy (~07/12/24) Family History Mother No problems noted. Father No problems noted. Social History Housing: House Patient Tobacco Use Status: Never used Tobacco e-Cigarette/Vaping Use: Never Used service: No Current occupational status: retired Cognitive needs: No Hearing needs: No Vision needs: Yes (rx glasses) Questionnaire Thrive Questionnaire Date Thrive assessed: 09/05/24 PIPPA-7 AMB Questionnaire PIPPA-7 Date PIPPA - 7 assessed: 09/05/24 Source: Developed by Drs. Hector Medina, Leonora Bourgeois, Jc Talamantes and colleagues, with an educational maribell from [employer]. Review of Systems Const Details: - Genitourinary: Reports increased urinary frequency, nocturia, and occasional dribbling; denies significant burning sensation - Musculoskeletal: Reports chronic sciatica - Cardiovascular: Denies any new symptoms; noted high blood pressure today All systems reviewed & are unremarkable except as reviewed in HPI and above Physical exam (Primary Care) Vital Signs: Last Vital Signs Temp 97.8 F 11/29/24 09:38 Pulse 73 11/29/24 09:38 Resp 17 11/29/24 09:38 BP 150/76 H 11/29/24 09:38 Pulse Ox 98 11/29/24 09:38 Oxygen Delivery Method Room Air 11/29/24 09:38 BMI result Body Mass Index 25.5 Tobacco/Smoking Status: Tobacco use Status Tobacco use date assessed 09/05/24 11/29/24 09:39 Patient Tobacco Use Status Never used Tobacco 11/29/24 09:39 e-Cigarette/Vaping Use Never Used 11/29/24 09:39 Thrive Assessment: Date of Thrive Assessment Date Thrive assessed 09/05/24 11/29/24 09:39 Const Other: General: +Alert and oriented, Well nourished, No acute distress. Eye: Pupils are equal, round and reactive to light, Intact accommodation, Extraocular movements are intact, Normal conjunctiva, Vision unchanged. HENT: Normocephalic, Atraumatic, Tympanic membranes are clear, Normal hearing, Oral mucosa is moist, No pharyngeal erythema, Ear canals patent. Respiratory: Lungs CTA bilaterally, No wheeze, Respirations are non-labored. Cardiovascular: Regular rate, Regular rhythm, S1 auscultated, S2 auscultated, No murmur, Good pulses equal in all extremities, Normal peripheral perfusion, No edema. Gastrointestinal: Soft, Non-tender, Non-distended, Normal bowel sounds, No organomegaly. Musculoskeletal: Normal range of motion, Normal strength, No tenderness, No swelling, No deformity, Normal gait. Integumentary: Warm, Dry, Bill[place], Intact. Neurologic: Alert, Oriented, Normal sensory, Normal motor function, No focal defects, Cranial Nerves II-XII are grossly intact, Normal deep tendon reflexes. Psychiatric: Cooperative, Appropriate mood & affect, Normal judgment. Coding Level of Care Code Est Pt Level 4 (21151) Complex EM visit Add On G2211 Diagnoses Increased urinary frequency R35.0 Primary hypertension I10 Hypertension type: primary hypertension Assessment & Plan Assessment & Plan (1) Increased urinary frequency: Comment: Worsening urinary frequency over the past 3 days however reports he just has increased frequency with no increase in volume and also noticed a slight decrease in volume. At this time we will obtain a CMP to evaluate for kidney functions and also patient to keep a record of how often he is going to urinate and volume (estimated) Advised patient that if his electrolytes are normal kidney function is normal he may need to make some behavioral changes such as decreasing the fluid/coffee intake per day. However there may be a possibility that he has prostatic enlargement which is causing urinary retention therefore we will also start him on tamsulosin to help with symptoms after blood work returns and is unremarkable (script to be sent once labs return). Also advised him if he has worsening symptoms and has any sort of confusion to present to the emergency room to rule out urinary retention. There may also be a possibility of ibuprofen overuse that is caused ATN although urinalysis does not mention any casts. Code(s): R35.0 - Frequency of micturition Category: Medical (2) HTN (hypertension): Comment: - Continue lisinopril 10 mg as prescribed. - Monitor blood pressure regularly (elevated pressures in clinic today and will re-evaluate at next visit) - Discuss risks related to high blood pressure including potential cardiovascular risks. Code(s): I10 - Essential (primary) hypertension Category: Medical Qualifiers: Hypertension type: primary hypertension Qualified Code(s): I10 - Essential (primary) hypertension Plan We discussed the primary concern of increased urinary frequency and its potential causes. The clear urine test ruled out infection; however, we need to evaluate kidney function and electrolytes to discourage conditions like diabetes insipidus. We explored maintaining hydration but calculated water intake to identify potential overhydration. The possible side effects of ibuprofen with the sciatica pain were addressed. We reviewed lisinopril's efficacy in managing hypertension despite today's elevated reading, highlighting the importance of consistent monitoring. The patient was advised to ensure complete bladder evacuation due to potential benign prostatic hyperplasia contribution or recurrence. The visit was concluded with anticipatory guidance for emergency care if conditions worsened. Orders: Orders Hemoglobin A1c Today R35.0 - Frequency of micturition Complete Blood Count Auto Diff Today R35.0 - Frequency of micturition Comprehensive Met. Panel Today R35.0 - Frequency of micturition Patient Instructions: - Track water and caffeine intake daily. - Note urination frequency and amount. - Continue lisinopril and ibuprofen as instructed. - Seek emergency care if increased urination worsens or is accompanied by other symptoms.
[2024-11-29 09:38] VITALS: BP 150/76; PULSE 73; RESP 17; TEMP 36.6; O2SAT 98; BMI 25.5
--- OUTSIDE RECORDS SUMMARY | 2024-11-29 10:41 | XMS_ITS | Patient Health Record ---
Author Organization [facility] Address [address] [place] [address] Care Team Providers Care Butter Printer Name Role Phone Lauren Mckeon, Radha Primary Care Provider Unavail able Wyatt Infante Jr Unavailable [phone] Allergies No Known Allergies Reason For Referral Referring Provider First Name Can Referring Provider Last Name Conrado (RETI RED) Referring Provider Speciality Internal M edicine Referred Organization [facility] Referred Provider Wyatt Infante Jr Referred Address [address],[place], [place],[address],[place] Referred Provider Specialty Gastroentero logy General Notes Sophia Mccarthy 024 01:18:30 PM EST > requested an o blue referral from dr juarez's office for visit with Dr. Infante on 04-22-2024 ( said 03-27-24) [phone], Sophia Mccarthy 04/10/2024 03:55:01 PM EST > requested again Referral Priority Routine Referring Provider First Name Radha Referring Provider Last Name Lauren Referred Organization [facility] Referred Provider Wyatt Infante Jr Referred Address [address] [place] [address], [address],[place], [place],[address],[place] Referred Provider Specialty Gastroentero logy General Notes [...] Risk Notes Problem External hemorrhoids without complication (31625540) External hemorrhoids without mention of complication (455.3) Active confirmed Problem Screening for malignant neoplasm of colon (934234940) Special screening for malignant neoplasms, colon (V76.51) Active confirmed Problem 585937383 Special screening for malignant neoplasms, colon (Z12.11) Active confirmed Problem 857569949 Encounter for other preprocedural examination (Z01.818) Active confirmed Problem 780812611085132 Encounter for long-term (current) use of NSAIDs (Z79.1) Active confirmed Vital Signs Temperature 96.9 degrees Fahrenheit 04/22/2024 Blood pressure diastolic 00 mm Hg 04/22/2024 Height 67 in 04/22/2024 Blood pressure systolic 000 mm Hg 04/22/2024 Weight 172 lb 4 oz lbs 04/22/2024 BMI 26.98 kg/m2 04/22/2024 Encounters Encounter Location Date Provider Diagnosis [facility] Outpatient [address] [place] [id number] 07/12/2024 Wyatt Infante Jr Colon cancer screening Z12.11 and FH: colon polyps Z83.719 [facility] [address] [place] [phone] 04/22/2024 Wyatt Infante Jr Special screening for malignant neoplasms, colon Z12.11 ; Encounter for other preprocedural examination Z01.818 and Encounter for long-term (current) use of NSAIDs Z79.1 [facility] [address] [place] [phone] 07/09/2024 Wyatt Infante Jr Assessments Encounter Date [...] Insured Coverage Start Date Coverage End Date [facility] [place] PROFESSIONAL [place]S [address] [place] [address] [id number] HARRY OCHOA Self - patient is the insured Medical (General) History Medical History History ICD Code Hyperlipidemia enlarged prostate Hypertension Colonoscopy 08/29, hyperplastic polyp, fi ve-year followup Surgical History Surgery Date(Month/Year) cystoscopy and prostate surgery
--- OUTSIDE RECORDS SUMMARY | 2024-11-29 10:41 | XMS_ITS | Patient Health Record ---
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
== END 2024-11-29 10:10 | disposition home or self-care (01) ==
PROVIDERS: PCP Physician Assistant Medical; Visit Provider Student in an Organized Health Care Education/Training Program
DX: R35.0 Frequency of micturition (principal); I10 Essential (primary) hypertension

== ENCOUNTER 2024-12-11 10:19 | Outpatient (REF) | payer BC, SELFPAY ==
--- NOTE | ~2024-12-11 | XR_ITS ---
EXAMINATION: XR SHOULDER, LEFT CLINICAL INFORMATION: M25.512 - Pain in left shoulder COMPARISON: None available. TECHNIQUE: Three views of the left shoulder. FINDINGS: The bones and soft tissues are normal. No fracture. Glenohumeral and acromioclavicular alignment is anatomic with normal joint space. No abnormal soft tissue calcifications. XR/XR shoulder LT min 2V IMPRESSION: Unremarkable left shoulder. Electronically signed by: Altaf Rocha MD 12/11/2024 02:32 PM EDT
== END 2024-12-11 10:20 | disposition home or self-care (01) ==
LOC: HO.HOSX 10:19
PROVIDERS: Visit Provider Physician Assistant
DX: M75.92 Shoulder lesion, unspecified, left shoulder (principal)
CPT/HCPCS: 73030

== ENCOUNTER 2024-12-11 13:35 | Outpatient (AMB) | payer BC, SELFPAY ==
--- OUTSIDE RECORDS SUMMARY | 2024-07-12 04:10 | XMS_ITS ---
Author Organization [facility] Address [address] [place] [address] Care Team Providers Care Manager Diabetes Name Role Phone Rdaha Aguilar M.D. Primary Care Provider Wyatt Conde Jr [phone] REASON FOR VISIT screening Encounters Encounter Location Date Provider Diagnosis [facility] Outpatient [address] [place] [phone] 07/12/2024 Wyatt Infante Jr Colon cancer screening Z12.11 and FH: colon polyps Z83.719 Assessments Encounter Date Diagnosis (ICD Code) Assessment Notes Treatment Notes Treatment Clinical Notes Section Notes 07/12/2024 Colon cancer screening (ICD-10 - Z12.11) 07/12/2024 FH: colon polyps (ICD-10 - Z83.719) Plan Of Treatment No Information Progress Notes * PING OCHOAOB:[birth year] 63 (64 yo M)Acc No.[id number]:07/12/2024 COLON WITH MAC Patient: HARRY WELLS Provider: Tom Infante MD :1960 A ge:64 Y S ex:Male Date:07/12/2024 Address:[address] [place], [place] [phone] Pcp:Radha Aguilar M.D. Subjective: * Chief Complaints: [...] 0 07/12/2024 Generated for Rodney castillo/Michael/Tuckeritting on: 0 12/11/2024 04:00 PM EDT
--- NOTE | 2024-12-11 13:54 | A.OFFVIS_ITS ---
Vital Signs 12/11/24 14:07 Height 5 ft 7 in Weight 163 lb BMI 25.5 Intake Visit Reasons: New prob-Lt shoulder pain Intake Note: Roland is a 64 year old right hand dominant male who presents today as an established paitent, new problem visit to evaluate left shoulder pain. Patient reports pain started about 3 months ago. He does not recall any injury however he mentions pain presented after he was performing rope exercises at the gym. HE complains of limited ROM and soreness in his shoulder that travels to his bicep area. He attended physical therapy last week and is scheduled for Monday. Allergies No Known Allergies Allergy (Verified 12/11/24 14:07) HPI HPI New prob-Lt shoulder pain: Details: 64 yo male presents to the office today for left shoulder pain. He denies injury, states the left shoulder pain started over time. He does recall going to the gymand using a rope and suddently felt pain He states he did have some pain at night. He denies weakness. He states PT last week, one session. [facility] Medical History (Updated 11/29/24 @ 16:28 by Keven Johnson MD) Elevated PSA measurement Increased urinary frequency BPH (benign prostatic hyperplasia) HTN (hypertension) Elevated cholesterol Surgical History (Reviewed 11/27/24 @ 09:17 by Lillian Russo COUNTS INCLUDE 234 BEDS AT THE [facility]) History of prostate surgery Hx of cystoscopy H/O colonoscopy (~07/12/24) Family History Mother No problems noted. Father No problems noted. Social History Housing: House Patient Tobacco Use Status: Never used Tobacco e-Cigarette/Vaping Use: Never Used service: No Current occupational status: retired Cognitive needs: No Hearing needs: No Vision needs: Yes (rx glasses) Review of Systems Const All systems reviewed & are unremarkable except as noted in HPI and below Physical Exam Extrem Other: Right shoulder full range of motion in all planes. He has a positive Ramírez. Negative cross-body adduction. 5/5 rotator cuff strength. Neurovascularly intact. Results Reviewed Results Reviewed: X-rays of the right shoulder obtained in the office today and reviewed by me do show a type 2 acromion process. Assessment & Plan Assessment & Plan (1) Supraspinatus tendinitis: Code(s): M75.90 - Shoulder lesion, unspecified, unspecified shoulder Category: Medical Qualifiers: Laterality: left Qualified Code(s): M75.92 - Shoulder lesion, unspecified, left shoulder Plan: The patient will continue working with physical therapy for rotator cuff and periscapular stabilization. He will resume the ibuprofen when he is comfortable to help with inflammation. If symptoms persist or worsen he can always see me back for a steroid injection otherwise she will follow up as needed. Orders: Orders XR shoulder LT min 2V Today M25.512 - Pain in left shoulder Coding Level of Care Code Est Pt Level 3 (19209) Complex EM visit Add On G2211 Diagnoses Left supraspinatus tendinitis M75.92 Laterality: left
[2024-12-11 14:07] VITALS: BMI 25.5
--- OUTSIDE RECORDS SUMMARY | 2024-12-11 16:00 | XMS_ITS | Patient Health Record ---
Author Organization [facility] Address [address] [facility] [address] [place] [address] Care Team Providers Care Printing Bindery Assistant Name Role Phone Lauren Mckeon, Radha Primary Care Provider Unavail able Wyatt Infante Jr Unavailable Allergies No Known Allergies Reason For Referral Referring Provider First Name Can Referring Provider Last Name Conrado (RETI RED) Referring Provider Speciality Internal M edicine Referred Organization [facility] Referred Provider Wyatt Infante Jr Referred Address [address] [facility] [address] [facility],[address],[place], [place],[address],[place] Referred Provider Specialty Gastroentero logy General Notes Sophia Mccarthy 024 01:18:30 PM EST > requested an o blue referral from dr juarez's office for visit with Dr. Infante on 04-22-2024 ( said 03-27-24) [phone], Sophia Mccarthy 04/10/2024 03:55:01 PM EST > requested again Referral Priority Routine Referring Provider First Name Radha Referring Provider Last Name Lauren Referred Organization [facility] Referred Provider Wyatt Infante Jr Referred Address [address] [place] [address], [address],[place], [place],[address],[place] Referred Provider Specialty Gastroentero logy General Notes [...] Risk Notes Problem External hemorrhoids without complication (61267101) External hemorrhoids without mention of complication (455.3) Active confirmed Problem Screening for malignant neoplasm of colon (240184519) Special screening for malignant neoplasms, colon (V76.51) Active confirmed Problem 378827743 Special screening for malignant neoplasms, colon (Z12.11) Active confirmed Problem 655373310 Encounter for other preprocedural examination (Z01.818) Active confirmed Problem 556272184324318 Encounter for long-term (current) use of NSAIDs (Z79.1) Active confirmed Vital Signs Temperature 96.9 degrees Fahrenheit 04/22/2024 Blood pressure diastolic 00 mm Hg 04/22/2024 Height 67 in 04/22/2024 Blood pressure systolic 000 mm Hg 04/22/2024 Weight 172 lb 4 oz lbs 04/22/2024 BMI 26.98 kg/m2 04/22/2024 Encounters Encounter Location Date Provider Diagnosis [facility] [address] [place] [id number] 07/12/2024 Wyatt Infante Jr Colon cancer screening Z12.11 and FH: colon polyps Z83.719 [facility] [address] [place] [phone] 04/22/2024 Wyatt Infante Jr Special screening for malignant neoplasms, colon Z12.11 ; Encounter for other preprocedural examination Z01.818 and Encounter for long-term (current) use of NSAIDs Z79.1 [facility] [address] [facility] [address] [place] [phone] 07/09/2024 Wyatt Infante Jr Assessments Encounter Date [...] Insured Coverage Start Date Coverage End Date [facility] BLUE BCBS PROFESSIONAL CLAIMS [address] [place] [address] [id number] HARRY OCHOA Self - patient is the insured Medical (General) History Medical History History ICD Code Hyperlipidemia enlarged prostate Hypertension Colonoscopy 08/29, hyperplastic polyp, fi ve-year followup Surgical History Surgery Date(Month/Year) cystoscopy and prostate surgery
--- OUTSIDE RECORDS SUMMARY | 2024-12-11 16:00 | XMS_ITS | Patient Health Record ---
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
== END 2024-12-11 14:10 | disposition home or self-care (01) ==
LOC: HO.HOS 13:36
PROVIDERS: PCP Internal Medicine; Visit Provider Physician Assistant
DX: M75.82 Other shoulder lesions, left shoulder (principal)
CPT/HCPCS: 99213

== ENCOUNTER → 2024-12-11 13:38 | Outpatient (BNV) | payer BC, SELFPAY | PROVIDERS: Visit Provider Radiology Diagnostic Radiology | DX: M25.512 Pain in left shoulder (principal) | CPT/HCPCS: 73030 ==

== ENCOUNTER 2024-12-18 07:32 | Outpatient (REF) | payer BC, SELFPAY ==
--- OUTSIDE RECORDS SUMMARY | 2024-07-12 04:10 | XMS_ITS ---
Author Organization [facility] Address [address] [place] [address] Care Team Providers Care Recreation Leader Name Role Phone Radha Aguilar M.D. Primary Care Provider Wyatt Conde Jr REASON FOR VISIT screening Encounters Encounter Location Date Provider Diagnosis [facility] [place] [address] [place] [phone] 07/12/2024 Wyatt Infante Jr Colon cancer screening Z12.11 and FH: colon polyps Z83.719 Assessments Encounter Date Diagnosis (ICD Code) Assessment Notes Treatment Notes Treatment Clinical Notes Section Notes 07/12/2024 Colon cancer screening (ICD-10 - Z12.11) 07/12/2024 FH: colon polyps (ICD-10 - Z83.719) Plan Of Treatment No Information Progress Notes * PING OCHOAOB:[birth year] 63 (64 yo M)Acc No.[id number]:07/12/2024 COLON WITH MAC Patient: HARRY WELLS Provider: Tom Infante MD :1960 A ge:64 Y S ex:Male Date:07/12/2024 Address:[address] [place], [place] [phone] Pcp:Radha Aguilar M.D. Subjective: * Chief Complaints: [...] 0 07/12/2024 Generated for Rodney castillo/Michael/Tuckeritting on: 1 07:35 AM EDT
--- NOTE | ~2024-12-18 | US_ITS ---
EXAMINATION: US PROSTATE TRANSRECTAL VOLUME HISTORY: R35.0 - Frequency of micturition COMPARISON: There are no prior studies available for comparison. FINDINGS: Endorectal examination of the prostate was performed and calculated prostate volume. The prostate measures 4.0 x 2.4 x 4.1 cm, for an estimated volume of 21.0 mL. US/US prostate volume IMPRESSION: Estimated prostate volume of 21.0 mL. Electronically signed by: Hector Garcia MD 12/18/2024 08:37 AM EDT
--- OUTSIDE RECORDS SUMMARY | 2024-12-18 07:35 | XMS_ITS | Patient Health Record ---
Author Organization [facility] Address [address] [facility] [address] [place] [address] Care Team Providers Care Freelance Designer Name Role Phone Lauren Mckeon, Radha Primary Care Provider Unavail able Wyatt Inafnte Jr Unavailable Allergies No Known Allergies Reason For Referral Referring Provider First Name Can Referring Provider Last Name Conrado (RETI RED) Referring Provider Speciality Internal M edicine Referred Organization [facility] Referred Provider Wyatt Infante Jr Referred Address [address] [facility],[address],[place], [place],[address],[place] Referred Provider Specialty Gastroentero logy General Notes Sophia Mccarthy 024 01:18:30 PM EST > requested an o blue referral from dr juarez's office for visit with Dr. Infante on 04-22-2024 ( said 03-27-24) [phone], Sophia Mccarthy 04/10/2024 03:55:01 PM EST > requested again Referral Priority Routine Referring Provider First Name Radha Referring Provider Last Name Lauren Referred Organization [facility] Referred Provider Wyatt Infante Jr Referred Address [address] [place] [address], [address],[place], [place],[address],[place] Referred Provider Specialty Gastroentero logy General Notes [...] Risk Notes Problem External hemorrhoids without complication (65443915) External hemorrhoids without mention of complication (455.3) Active confirmed Problem Screening for malignant neoplasm of colon (244829309) Special screening for malignant neoplasms, colon (V76.51) Active confirmed Problem 964233698 Special screening for malignant neoplasms, colon (Z12.11) Active confirmed Problem 671991284 Encounter for other preprocedural examination (Z01.818) Active confirmed Problem 178188971430756 Encounter for long-term (current) use of NSAIDs (Z79.1) Active confirmed Vital Signs Temperature 96.9 degrees Fahrenheit 04/22/2024 Blood pressure diastolic 00 mm Hg 04/22/2024 Height 67 in 04/22/2024 Blood pressure systolic 000 mm Hg 04/22/2024 Weight 172 lb 4 oz lbs 04/22/2024 BMI 26.98 kg/m2 04/22/2024 Encounters Encounter Location Date Provider Diagnosis [facility] [place] [facility] [address] [place] [id number] 07/12/2024 Wyatt Infante Jr Colon cancer screening Z12.11 and FH: colon polyps Z83.719 [facility] [address] [place] [phone] 04/22/2024 Wyatt Infante Jr Special screening for malignant neoplasms, colon Z12.11 ; Encounter for other preprocedural examination Z01.818 and Encounter for long-term (current) use of NSAIDs Z79.1 [facility] [address] [facility] [address] [place] [phone] 07/09/2024 Wyatt Infante Jr Assessments Encounter Date [...] Insured Coverage Start Date Coverage End Date [facility] BLUE BCBS PROFESSIONAL CLAIMS [address] [place] [address] [id number] 200 HARRY OCHOA Self - patient is the insured Medical (General) History Medical History History ICD Code Hyperlipidemia enlarged prostate Hypertension Colonoscopy 08/29, hyperplastic polyp, fi ve-year followup Surgical History Surgery Date(Month/Year) cystoscopy and prostate surgery
--- OUTSIDE RECORDS SUMMARY | 2024-12-18 07:36 | XMS_ITS | Patient Health Record ---
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
== END 2024-12-18 07:33 | disposition home or self-care (01) ==
LOC: HO.US 07:32
PROVIDERS: PCP Student in an Organized Health Care Education/Training Program; Visit Provider Student in an Organized Health Care Education/Training Program
DX: R35.0 Frequency of micturition (principal); N40.0 Benign prostatic hyperplasia without lower urinary tract symptoms; R97.20 Elevated prostate specific antigen [PSA]
CPT/HCPCS: 76872

== ENCOUNTER → 2024-12-18 07:33 | Outpatient (BNV) | payer BC, SELFPAY | PROVIDERS: PCP Student in an Organized Health Care Education/Training Program; Visit Provider Radiology Diagnostic Radiology | DX: R35.0 Frequency of micturition (principal) | CPT/HCPCS: 76872 ==

== ENCOUNTER 2025-01-03 11:05 | Outpatient (AMB) | payer BC, SELFPAY ==
--- OUTSIDE RECORDS SUMMARY | 2024-07-12 04:10 | XMS_ITS ---
Author Organization [facility] Address [address] [place] [address] Care Team Providers Care Wood Grinder Operator Name Role Phone Radha Aguilar M.D. Primary Care Provider Wyatt Conde Jr [phone] REASON FOR VISIT screening Encounters Encounter Location Date Provider Diagnosis [facility] [place] [address] [place] [phone] 07/12/2024 Wyatt Infante Jr Colon cancer screening Z12.11 and FH: colon polyps Z83.719 Assessments Encounter Date Diagnosis (ICD Code) Assessment Notes Treatment Notes Treatment Clinical Notes Section Notes 07/12/2024 Colon cancer screening (ICD-10 - Z12.11) 07/12/2024 FH: colon polyps (ICD-10 - Z83.719) Plan Of Treatment No Information Progress Notes * PING OCHOAOB:[birth year] 63 (64 yo M)Acc No.[id number]:07/12/2024 COLON WITH MAC Patient: HARRY WELLS Provider: Tom Infante MD :1960 A ge:64 Y S ex:Male Date:07/12/2024 Address:[address] [place], [place] [phone] Pcp:Radha Aguilar M.D. Subjective: * Chief Complaints: [...] 07/12/2024 Generated for Rodney castillo/Michael/Tuckeritting on: 1 01:48 PM EDT
--- NOTE | 2025-01-03 11:15 | MHC.OFFVIS ---
Intake Visit Reasons: elevated PSA Intake Note: patient presents today for: new pt elevated PSA urology medications: tamsulosin blood thinners: none labs done 11/29/24: psa 15.37 Market Developer Required: No Accompanied by: Self / Same As Patient Allergies No Known Allergies Allergy (Verified 01/03/25 11:17) [facility] Medical History (Updated 11/29/24 @ 16:28 by Keven Johnson MD) Elevated PSA measurement Increased urinary frequency BPH (benign prostatic hyperplasia) HTN (hypertension) Elevated cholesterol Surgical History History of prostate surgery Hx of cystoscopy H/O colonoscopy (~07/12/24) Family History Mother No problems noted. Father No problems noted. Social History Housing: House Patient Tobacco Use Status: Never used Tobacco e-Cigarette/Vaping Use: Never Used service: No Current occupational status: retired Cognitive needs: No Hearing needs: No Vision needs: Yes (rx glasses) Results AMB Urinalysis, Automated UA Leukoctes 0 Dee/uL Last Edit by ISIAH Bright on 01/03/25 12:03 UA Nitrite Last Edit by ISIAH Bright on 01/03/25 12:03 UA Urobilinogen 0.2 mg/dL Last Edit by ISIAH Bright on 01/03/25 12:03 UA Protein 0 mg/dL Last Edit by ISIAH Bright on 01/03/25 12:03 UA pH 5.5 Last Edit by ISIAH Bright on 01/03/25 12:03 UA Blood 0 Robert/uL Last Edit by ISIAH Bright on 01/03/25 12:03 UA Specific Troy 1.015 Last Edit by ISIAH Bright on 01/03/25 12:03 UA Ketone Last Edit by ISIAH Bright on 01/03/25 12:03 UA Bilirubin 0 mg/dL Last Edit by ISIAH Bright on 01/03/25 12:03 UA Glucose 0 mg/dL Last Edit by ISIAH Bright on 01/03/25 12:03 Assessment & Plan Assessment & Plan (1) Elevated PSA measurement: Code(s): R97.20 - Elevated prostate specific antigen [PSA] Category: Medical Orders: Orders AMB Urinalysis Automated Today Z13.9 - Encounter for screening, unspecified PSA,Total (Free>4and<10) 3 Months R97.20 - Elevated prostate specific antigen [PSA] Coding Diagnoses Elevated PSA measurement R97.20
--- OUTSIDE RECORDS SUMMARY | 2025-01-03 13:48 | XMS_ITS | Patient Health Record ---
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
--- OUTSIDE RECORDS SUMMARY | 2025-01-03 13:48 | XMS_ITS | Patient Health Record ---
Author Organization [facility] Address [address] [facility] [address] [place] [address] Care Team Providers Care Asphalt Tamper Name Role Phone Lauren Mckeon, Radha Primary Care Provider Unavail able Wyatt Infante Jr Unavailable [phone] Allergies No Known Allergies Reason For Referral Referring Provider First Name Can Referring Provider Last Name Cnorado (RETI RED) Referring Provider Speciality Internal M edicine Referred Organization [facility] Referred Provider Wyatt Infante Jr Referred Address [address] [facility],[address],[place],[address],[place] Referred Provider Specialty Gastroentero logy General Notes Sophia Mccarthy 024 01:18:30 PM EST > requested an o blue referral from dr juarez's office for visit with Dr. Infante on 04-22-2024 ( said 03-27-24) [phone], Sophia Mccarthy 04/10/2024 03:55:01 PM EST > requested again Referral Priority Routine Referring Provider First Name Radha Referring Provider Last Name Lauren Referred Organization [facility] Referred Provider Wyatt Infante Jr Referred Address [address] [place] [address], [address],[place], [place],[address],[place] Referred Provider Specialty Gastroentero logy General Notes Sophia Mccarthy 2024 11:06:18 AM >Need referral for procedure with Dr. Infante on 07-12-24 if pcp changed from Dr. Juarez to Radha Suarez. Referral Priority Routine Medications Medication SIG (Take, Route, Fr equency, Duration) Notes Start Date End Date Status Ezetimibe 10 MG TAKE ONE TABLET BY M OUTH EVERY DAY Oral; Duration: 30 Active Ibuprofen 200 MG 1 tablet with food o r milk as needed Orally Three times a day Active Lisinopril 10 MG TAKE ONE TABLET BY M OUTH EVERY DAY Oral; Duration: 60 Active Immunizations Vaccine Route Administration Date Status Comme nts Influenza Unknown 12/12/2023 Administered Problems Problem Type SNOMED Code ICD Code Onset Dates Problem Status W/U Status Risk Notes Problem External hemorrhoids without complication (57133353) External hemorrhoids without mention of complication (455.3) Active confirmed Problem Screening for malignant neoplasm of colon (000256534) Special screening for malignant neoplasms, colon (V76.51) Active confirmed Problem Screening for malignant neoplasm of colon (407427868) Special screening for malignant neoplasms, colon (Z12.11) Active confirmed Problem Pre-procedure evaluation check (670034167) Encounter for other preprocedural examination (Z01.818) Active confirmed Problem meterman current use of non-steroidal anti-inflammator y drug (151974582201171 ) Encounter for long-term (current) use of NSAIDs (Z79.1) Active confirmed Vital Signs Temperature 96.9 degrees Fahrenheit 04/22/2024 Blood pressure diastolic 00 mm Hg 04/22/2024 Height 67 in 04/22/2024 Blood pressure systolic 000 mm Hg 04/22/2024 Weight 172 lb 4 oz lbs 04/22/2024 BMI 26.98 kg/m2 04/22/2024 Encounters Encounter Location Date Provider Diagnosis [facility] [address] [place] [id number] 07/12/2024 Wyatt Infante Jr Colon cancer screening Z12.11 and FH: colon polyps Z83.719 [facility] [address] [place] [phone] 04/22/2024 Wyatt Infante Jr Special screening for malignant neoplasms, colon Z12.11 ; Encounter for other preprocedural examination Z01.818 and Encounter for long-term (current) use of NSAIDs Z79.1 [facility] [address] [place] [phone] 07/09/2024 Wyatt Infante Jr Assessments Encounter Date [...] Insured Coverage Start Date [facility]age End Date [facility] [address] [place] [address] [id number] 200 HARRY OCHOA Self - patient is the insured Medical (General) History Medical History History ICD Code Hyperlipidemia enlarged prostate Hypertension Colonoscopy 08/29, hyperplastic polyp, fi ve-year followup Surgical History Surgery Date(Month/Year) cystoscopy and prostate surgery
== END 2025-01-03 12:14 | disposition home or self-care (01) ==
LOC: HO.HUSH 11:05
PROVIDERS: PCP Physician Assistant Medical; Visit Provider Urology
DX: Z13.9 Encounter for screening, unspecified (principal)

== ENCOUNTER → 2025-01-03 11:05 | Outpatient (BNVA) | payer BC, SELFPAY | PROVIDERS: PCP Physician Assistant Medical; Visit Provider Urology | DX: R97.20 Elevated prostate specific antigen [PSA] (principal) | CPT/HCPCS: 81003 ==

== ENCOUNTER 2025-01-14 11:00 | Outpatient (RCR) | payer BC, SELFPAY ==
[2024-12-05 10:10] VITALS: BP 118/62
--- NOTE | 2024-12-05 13:55 | MHC.PT.EP ---
[facility] [place] Office [place] Office [place] Office [address] Zoey Morataya [address] [phone] F: [phone] F: [phone] F: [phone] F: [phone] Physical Therapy Plan of Care Date of Evaluation: 12/05/24 Date of Surgery: Diagnosis: Pain in LEFT shoulder (MD Dx) LEFT shoulder adhesive capsulitis and subacromial impingement syndrome (PT Dx) RS Assessment: Roland Moreno (:61) is a 64 y.o. who is referred to PT by Dr. Radha Aguilar MD, with Dx of LEFT shoulder pain. PT diagnosis is LEFT shoulder adhesive capsulitis. Patient impairments include poor posture, pain, limited ROM, weakness scapular stabilizers. Patient current functional limitations are reaching out laterally, lifting/carrying items (trash bag), putting on t-shirts, reaching behind back. Patient will benefit from skilled PT to address aforementioned impairments and functional limitations to meet established goals. Frequency and Duration: The patient will be seen 2x/week for 4 weeks Short Term Goals: 2 weeks Patient demonstrates consistency and independence with HEP to self Groundwater Monitoring Technician Goals: 4 weeks Patient presents with increased L shoulder flexion 160 degrees to put on shirts without difficulty. Patient presents with L shoulder ER 60 deg to be able to reach behind back without difficulty. Treatment Plan: Modalities to reduce pain, spasms and effusion. Manual therapy to restore motion and function. Therapeutic exercise to improve strength and flexibility. Neuromuscular re-education for posture and balance. Therapeutic activities to return to functional activities of daily living. Electronically signed by: Griselda Child, PT, DPT Please sign and return to therapist. Thank you for your referral.
== END 2025-02-10 15:32 | disposition home or self-care (01) ==
LOC: HO.PT 11:00
PROVIDERS: PCP Internal Medicine; Visit Provider Internal Medicine
DX: M25.512 Pain in left shoulder (principal); M25.561 Pain in right knee
CPT/HCPCS: 97110; 97140; 97161; 97530

== ENCOUNTER 2025-03-17 06:49 | Outpatient (REF) | payer BC, SELFPAY ==
--- OUTSIDE RECORDS SUMMARY | 2024-07-12 03:10 | XMS_ITS ---
Author Organization [facility] Address [address] [place] [address] Care Team Providers Care Welder Production Line Combination Name Role Phone Lauren Mckeon, Radha Primary Care Provider Wyatt Conde Jr REASON FOR VISIT screening Encounters Encounter Location Date Provider Diagnosis [facility] Outpatient [address] [place] [phone] 07/12/2024 Wyatt Infante Jr Colon cancer screening Z12.11 and FH: colon polyps Z83.719 Assessments Encounter Date Diagnosis (ICD Code) Assessment Notes Treatment Notes Treatment Clinical Notes Section Notes 07/12/2024 Colon cancer screening (ICD-10 - Z12.11) 07/12/2024 FH: colon polyps (ICD-10 - Z83.719) Plan Of Treatment No Information Progress Notes * PING OCHOAOB:[birth year] 63 (64 yo M)Acc No.[id number]:07/12/2024 COLON WITH MAC Patient: HARRY WELLS Provider: Tom Infante MD :1960 A ge:64 Y S ex:Male Date:07/12/2024 Address:[address] [place], [place] [phone] Pcp:Radha Aguilar M.D. Subjective: * Chief Complaints: * S creening Assessment: * Assessment: 1. C olon cancer screening - Z12.11 (Primary) 2 . F H: colon polyps - Z83.719 Plan: * Procedure Codes: 4 5378 DIAGNOSTIC [id number] INTRVL 3+YRS PTS CLNSCP DOCD Billing Information: * Procedure Codes: 02268 DIAGNOSTIC COLONOSCOPY. 0529F INTRVL 3+YRS PTS CLNSCP DOCD. * The named appointment provid er may or may not be the originator of this progress note, and it is not deemed complete until electronically signed by the appointment provider. Sign off status: Pending * Provider: Tom Infante MD Date: 0 07/12/2024 Generated for Rodney castillo/Michael/Tuckeritting on: 06:52 AM EST
--- OUTSIDE RECORDS SUMMARY | 2025-03-17 06:52 | XMS_ITS | Patient Health Record ---
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
--- OUTSIDE RECORDS SUMMARY | 2025-03-17 06:52 | XMS_ITS | Patient Health Record ---
Author Organization [facility] Address [address] [place] [address] Care Team Providers Care Plate Corrector Name Role Phone Lauren Mckeon, Radha Primary Care Provider Unavail able Wyatt Infante Jr Unavailable Allergies No Known Allergies Reason For Referral Referring Provider First Name Radha Referring Provider Last Name Lauren Referred Organization [facility] Referred Provider Wyatt Infante Jr Referred Address [address] [facility],[address],[place],[address], Referred Provider Specialty Gastroentero logy General Notes Sophia Mccarthy 2024 11:06:18 AM >Need referral for procedure with Dr. Infante on 07-12-24 if pcp changed from Dr. Camp to Radha Suarez. Referral Priority Routine Medications Medication SIG (Take, Route, Fr equency, Duration) Notes Start Date End Date Status Ezetimibe 10 MG Tablet TAKE ONE TABLET B Y MOUTH EVERY DAY Oral; Duration: 30 Act gemini Ibuprofen 200 MG Tablet 1 tablet with fo od or milk as needed Orally Three times a day Active Lisinopril 10 MG Tablet TAKE ONE TABLET BY MOUTH EVERY DAY Oral; Duration: 60 Act gemini Immunizations Vaccine Route Administration Date Status Comme nts Influenza Unknown 12/12/2023 Administered Social History Social History Additional Details Category Social Info Options Details Miscellaneous: Marital status: single Occupation: retired Section Notes: Tobacco use negative, alcoho l use is described as social. He works with the police department. Tobacco use negative, alcoho l use is described as social. Problems Problem Type SNOMED Code ICD Code Onset Dates Problem Status W/U Status Risk Notes Problem External hemorrhoids without complication (41780315) External hemorrhoids without mention of complication (455.3) Active confirmed Problem Screening for malignant neoplasm of colon (608771576) Special screening for malignant neoplasms, colon (V76.51) Active confirmed Problem Screening for malignant neoplasm of colon (841556511) Special screening for malignant neoplasms, colon (Z12.11) Active confirmed Problem Pre-procedure evaluation check (454847476) Encounter for other preprocedural examination (Z01.818) Active confirmed Problem correction current use of non-steroidal anti-inflammator y drug (801778697167420 ) Encounter for long-term (current) use of NSAIDs (Z79.1) Active confirmed Vital Signs Temperature 96.9 degrees Fahrenheit 04/22/2024 Blood pressure diastolic 00 mm Hg 04/22/2024 Height 67 in 04/22/2024 Blood pressure systolic 000 mm Hg 04/22/2024 Weight 172 lb 4 oz lbs 04/22/2024 BMI 26.98 kg/m2 04/22/2024 Encounters Encounter Location Date Provider Diagnosis [facility] [place] [address] [place] [id number] 07/12/2024 Wyatt Infante Jr Colon cancer screening Z12.11 and FH: colon polyps Z83.719 [facility] [address] [place] [phone] 04/22/2024 Wyatt Infante Jr Special screening for malignant neoplasms, colon Z12.11 ; Encounter for other preprocedural examination Z01.818 and Encounter for long-term (current) use of NSAIDs Z79.1 [facility] [address] [place] [phone] 07/09/2024 Wyatt Infante Jr Assessments Encounter Date [...] Insured Coverage Start Date Coverage End Date [facility] PROFESSIONAL CLAIMS [address] [place] [address] [id number] HARRY OCHOA Self - patient is the insured Medical (General) History Medical History History ICD Code Hyperlipidemia enlarged prostate Hypertension Colonoscopy 08/29, hyperplastic polyp, fi ve-year followup Surgical History Surgery Date(Month/Year) cystoscopy and prostate surgery
[2025-03-17 08:00] LABS: PSA,Total (Free>4and<10) 0.82 ng/mL (0.00-4.00)
== END 2025-03-17 06:50 | disposition home or self-care (01) ==
LOC: HO.LAB 06:49
PROVIDERS: PCP Physician Assistant Medical; Visit Provider Urology
DX: R97.20 Elevated prostate specific antigen [PSA] (principal); Z12.5 Encounter for screening for malignant neoplasm of prostate
CPT/HCPCS: 36415; 84153